=== PATIENT | female | born 1945 | race Caucasian/White ===

== ENCOUNTER 2023-07-06 21:44 | Inpatient (IN) | payer MEDICARE, OTHER, SELFPAY ==
[2023-07-06 18:20] VITALS: BP 96/60; BMI 21.1
--- NOTE | 2023-07-06 18:55 | ED.GENMED ---
History of Present Illness
General
Chief Complaint: Dizziness
Source: family (daughter)
Exam Limitations: dementia
Time Seen by Provider: 07/06/23 18:34
Travel History
Have you had any contact with someone who has COVID-19?: No
Do you have any symptoms of coronavirus? Fever > 100 degrees, chills, cough, shortness of breath, sore throat, loss of taste or smell, muscle aches, or headache?: No
History of Present Illness
History of Present Illness:
This is a 78 year old female that comes in with family with c/o fall. Daughter who is an ER nurse here states that the patient lives with her brother. States that today the pain fell backward and to the left side. States that she c/o dizziness.
Patient was found by son who said that she could take about 4 steps. Daughter states that she could walk about 6 feet and then felt like she was going to pass out. States that she is c/o left groin pain. Denies any fever, chills, chest pain, SOB,
abd pain, nausea, vomiting, diarrhea, headache, dizziness, urinary burning.
Past History
Past History
ED Past Medical History: Asthma, HTN, Hypercholesterolemia and Other (Dementia, UTI, Pelvic fracture from Trauma)
ED Past Surgical History: Cholecystectomy and Orthopedic (Right hip replacement, Bilateral arm pins, Back surgery, )
Social History
Tobacco: Non-smoker
Alcohol: Occasional
Personal:
Living: with family
Review of Systems
Review of Systems
All Other Systems: ROS reviewed and negative except as documented in HPI and ROS
Constitutional: Reports no symptoms; Denies fever or chills
EENT: Reports no symptoms
Respiratory: Reports no symptoms; Denies cough or trouble breathing
Cardiac: Reports no symptoms; Denies chest pain
ABD/GI: Denies abdominal pain, nausea, vomiting or diarrhea
: Reports no symptoms; Denies dysuria, frequency or urgency
Musculoskeletal: Reports no symptoms
Skin: Reports no symptoms
Neurological: Reports dizzy; Denies headache
Psychiatric: Reports no symptoms
Phy Exam
General Physical Exam
General Presentation: no apparent distress
General age: appears stated age
General Skin: warm and dry
General Habitus: elderly
General Mental: usual mental status
General Hydration: appears well hydrated
ENT Exam
ENT Exam: TM's normal, pharynx normal and neck supple
Eye Exam
Eye Exam: EOMI
Cardiovascular Exam
Cardiovascular Exam: regular rate/rhythm, no edema, normal peripheral pulses and other (Murmur)
Pulmonary Exam
Pulmonary Exam: lungs clear, no respiratory distress, no rales, chest non tender, no crackles, no rhonchi, no wheezing and no cough
Gastrointestinal Exam
Gastrointestinal Exam: normal bowel sounds, non tender, soft, no organomegaly, no pulsatile mass and non distended
Musculoskeletal Exam
Musculoskeletal Exam: no edema and other (Left groin pain with flexion of the knee, Legs equal length)
Skin Exam
Skin Exam: normal color, warm/dry, no rash and no petechia
Psychiatric Exam
Psychiatric Exam: normal mood/affect
Course
Orders/Labs/Results
Orders:
Orders
07/06/23 18:19
EKG [Electrocardiogram (*1)] Urgent
Reason for Study: Vertigo / Dizzy
EKG- Treatment ONCE
07/06/23 18:51
Complete Blood Count/With Diff Urgent
Comprehensive Metabolic Panel Urgent
Troponin I Urgent
Urinalysis Reflex To Culture Urgent
Date Specimen was Collected: 07/06/23
Time Specimen was Collected: 18:19
Urine Microscopic Reflex Cult Urgent
07/06/23 18:54
CT Pelvis W/o Iv Contrast Urgent
Comment: History of Pelvic trauma in the past
Reason For Exam: fall, left hip and pelvis pain
Acetaminophen [Tylenol] 1,000 mg PO NOW STA
07/06/23 18:55
0.9% Sodium Chloride 500 ml [Nss] 500 ml IV BOLUS
07/06/23 19:03
CT Head W/o Iv Contrast Urgent
Comment:
Reason For Exam: Fall, Dizziness
Abnormal Lab Results
07/06/23
18:51
WBC 15.4 H 10^3/uL
(4.8-10.8)
RBC 3.85 L 10^6/uL
(4.20-5.40)
Hgb 11.7 L g/dL
(12.0-16.0)
Hct 34.8 L %
(37.0-47.0)
Abs Immat Gran (auto) 0.1 H 10^3/uL
(0-0.05)
Absolute Neuts (auto) 13.9 H 10^3/uL
(1.4-6.5)
Absolute Lymphs (auto) 0.5 L 10^3/uL
(1.2-3.4)
Absolute Monos (auto) 0.9 H 10^3/uL
(0.1-0.6)
Neutrophils % 90.2 H %
(42.2-75.2)
Lymphocytes % 2.9 L %
(20.5-51.1)
Sodium 133 L mmol/L
(135-145)
Chloride 95 L mmol/L
(98-107)
BUN 26 H mg/dl
(7-17)
Glucose 184 H mg/dl
(70-99)
Urine Ketones Trace A
(Negative)
Leukocyte Esterase Rfl Trace A
(Negative)
Urine Bacteria (Reflex) Few A
(Negative)
Urine Glucose 2+ A
(Negative)
07/06/23 18:51
07/06/23 18:51
Leukocytosis, H/H slightly low. Sodium slightly low. Dehydration. Glucose nonfasting. Urine negative for infection. Troponin <0.012
Vital Signs
Initial and Last Documented VS:
Initial Vital Signs
Temp Pulse Resp BP Pulse Ox
99.2 F 81 16 96/60 98
07/06/23 18:20 07/06/23 18:20 07/06/23 18:20 07/06/23 18:20 07/06/23 18:20
Last Documented Vital Signs
Temp Pulse Resp BP Pulse Ox
99.2 F 78 16 130/61 96
07/06/23 18:20 07/06/23 20:15 07/06/23 20:15 07/06/23 19:00 07/06/23 20:10
MDM/Problems Addressed
Differential Diagnosis Includes:
Pelvic fracture, UTI
MDM/Problems Addressed:
This is a 78 year old female that comes in with c/o fall. Daughter states that she fell today and went backward and to the left. States that she was able to walk about 6 fee and then c/o feeling like she was going to pass out. States that she hasn't
been eating well and c/o left groin pain.
Will get labs, Urine, CT head and pelvis. Medicate for pain.
Back into see patient and daughter. Explained that there is left sided superior and Inferior pelvic fracture. Will admit patient. Hospitalist notified.
Chronic conditions affecting care: Other (Dementia)
Acute Exacerbation and/or Progression of Chronic Illness:
NA
*Radiology
Radiology exam reviewed: radiology read reviewed (CT head-No CT evidence for acute intracranial hemorrhage or transcortical infarct. Severe white matter leukoaraiosis in both cerebral hemispheres. Small chronic lacunar infarcts in the right basal
ganglia and right thalamus. Moderate bilateral frontal and temporal lobe Volume loss. CT pelvis- Acute), all reviewed NAD by ED Provider (CT pelvis Cont- Mildly displaced fractures of the left superior and inferior pubic rami with adjacent
intramuscular hemorrhage in the left obturator internus and extremus muscles and in the left extraperitoneal space adjacent to the urinary bladder. Chronc healed right pubic rami fractures. Chronic ) and other (CT cont- Chronic healed Right proximal
femoral intertrochangeric fracture with a gamma nail in place. Severe discogenic degenerative disease and facet joint arthrosis in the lower lumbar spine. Mild bilateral osteroarthritis of the hips. Ostteoporosis. )
*Pulse Oximetry
Patient hypoxic: no
*Photographic Lithographer Interpretation
Rate: normal
Heart Rate: 78
Rhythm: sinus
*Critical Care Note
Total Time (30-74mins, 75-104mins- exclusive of procedures): Not Applicable
ED Attending Note
-
Portions of this chart may have been created with voice recognition software.� Occasional wrong word or��sound alike� substitutions may have occurred due to the inherent limitations of voice recognition software.
Discharge Plan
Departure
Patient Disposition: Admit
Date of Disposition: 07/06/23
Time of Disposition: 20:46
Admit to: Med/Surg
Presentation/result/management discussed w/ accepting MD/DO: Hospitalist
Patient with high blood pressure during this ER visit?: Yes
Condition: Good
Covid-19: Not Applicable
Discharge Problem:
Closed fracture of left pelvis
Prescriptions:
No Action
atorvastatin 20 mg tablet
20 mg PO DAILY
amlodipine 5 mg tablet
5 mg PO DAILY
montelukast 10 mg tablet
10 mg PO HS
albuterol sulfate 90 mcg/actuation HFA aerosol inhaler
2 puff INHALATION R Q4HPRN PRN (Reason: sob/wheezing)
escitalopram oxalate 10 mg tablet
10 mg PO HS
Patient Comments:
07/06/2023: Supposed to take at HS, but per family they think pt is taking in the am per pill boxes
cholecalciferol (vitamin D3) 50 mcg (2,000 unit) capsule
50 mcg PO DAILY
Referrals:
Briana Raymundo CRNP [Family Provider] -
Interventions
Interventions:
*Risk Screen - Suicide Last Done: 07/06/23 18:20
*General Assessment Last Done: 07/06/23 18:46
*Neglect/Abuse Screening Last Done: 07/06/23 18:20
*ED COVID-19 Vaccine History Last Done: 07/06/23 18:20
ED- Neurological Assessment Last Done: 07/06/23 18:55
ED Swallowing Screen Last Done: 07/06/23 18:55
Discharge Date and Time
Print Language: OMANI
[2023-07-06 19:00] VITALS: BP 130/61
[2023-07-06] MEDS: TYLENOL 1000 MG PO (19:06)
[2023-07-06] MEDS: NSS 500 IV (19:07)
[2023-07-06 19:10] LABS: % Basophils 0.3 % (0-2); % Eosinophils 0.3 % (0-6); % Immature Granulocytes 0.5 % (0-0.5); % Lymphocytes 2.9 % (20.5-51.1); % Monocytes 5.8 % (1.7-9.3); % Neutrophils 90.2 % (42.2-75.2); Absolute Basophils 0.1 10^3/uL (0-0.2); Absolute Immature Granulocytes 0.1 10^3/uL (0-0.05); Absolute Lymphocytes 0.5 10^3/uL (1.2-3.4); Absolute Monocytes 0.9 10^3/uL (0.1-0.6); Absolute Neutrophils 13.9 10^3/uL (1.4-6.5); Hematocrit 34.8 % (37.0-47.0); Hemoglobin 11.7 g/dL (12.0-16.0); Mean Corp Hgb Conc. 33.6 g/dL (33.0-37.0); Mean Corpuscular Hgb 30.4 pg (27.0-31.0); Mean Corpuscular Volume 90.4 fL (81.0-99.0); Mean Platelet Volume 9.7 fL (7.4-10.4); Nucleated Red Blood Cells % 0 %; Platelet Count 262 10^3/uL (130-400); Red Blood Cell Count 3.85 10^6/uL (4.20-5.40); Red Cell Dist. Width 12.6 % (11.5-14.5); White Blood Cell Count 15.4 10^3/uL (4.8-10.8)
[2023-07-06 19:22] LABS: Chloride 95 mmol/L (98-107); Potassium 3.9 mmol/L (3.5-5.1); Sodium 133 mmol/L (135-145)
[2023-07-06 19:30] LABS: ALT (SGPT) 17 U/L (0-35); AST (SGOT) 23 U/L (14-36); Alkaline Phosphatase 79 U/L (38-126); Blood Urea Nitrogen 26 mg/dl (7-17); Carbon Dioxide 30 mmol/L (22-30); Estimated Creatinine Clearance 50 ml/min; Glucose 184 mg/dl (70-99); Total Bilirubin 0.5 mg/dl (0.2-1.3); Total Protein 6.3 g/dl (6.3-8.2); eGFR > 60.00
[2023-07-06 19:34] LABS: Troponin I < 0.012 ng/ml
[2023-07-06 19:48] LABS: Urine Albumin Trace (Neg - Trace); Urine Bilirubin Negative (Negative); Urine Character Clear (Clear); Urine Color Yellow; Urine Glucose 2+ (Negative); Urine Ketone Trace (Negative); Urine Leukocyte Trace (Negative); Urine Nitrite Negative (Negative); Urine Occult Blood Negative (Negative); Urine Urobilinogen Negative (Neg - 1+)
[2023-07-06 20:04] LABS: Urine Bacteria Few (Negative); Urine Red Blood Cell 0-2 /HPF (0-2)
[2023-07-06 21:00] VITALS: BP 148/65
--- NOTE | 2023-07-06 21:26 | HPS.HSE ---
Addendum entered and electronically signed by Abigail Barrett MD 07/06/23 21:45:
Code status CPR only.
Original Note:
Family Physician
-
Family Physician: ZACKARY Lozoya
Chief Complaint
-
fall
History of Present Illness
78-year-old female past medical history of asthma, hypertension, hypercholesteremia, dementia, presenting with fall. Daughter is a ER nurse here and states that patient lives with her brother. Today patient fell backward onto her left side due to
tripping which was not observed but brother immediately came down and found patient awake. She may have passed out briefly. Patient has chronic dizziness with ambulation. In April her amlodipine was decreased from 10 mg to 5 mg. She has not
been eating or drinking well recently.
She has had other tripping falls before.
No chest pain or shortness of breath or abdominal pain or nausea or vomiting or diarrhea.
Patient drinks alcohol occasionally. No smoking.
Medical History
Past Medical History
Past Medical History: Reports Other (asthma, hypertension, hypercholesteremia, dementia)
Past Surgical History: Reports Other (Cholecystectomy and Orthopedic (Right hip replacement, Bilateral arm pins, Back surgery, ))
Social History
Tobacco: Non-smoker
Alcohol: Occasional
Drug: None
Family History
Family History: Not pertinent
Allergies / Home Medications
Allergies reflects when Allergies were last updated in [employer].
Home Medications with original date entered in [employer]
Allergy/Medication List:
Allergies
Allergy/AdvReac Type Severity Reaction Status Date / Time
Iodinated Contrast Media Allergy Mild Unknown Verified 07/06/23 18:26
Home Medications
albuterol sulfate 90 mcg/actuation aerosol inhaler 2 puff inhalation R Q4HPRN PRN sob/wheezing 07/06/23
amlodipine 5 mg tablet 5 mg PO DAILY 07/06/23
atorvastatin 20 mg tablet 20 mg PO DAILY 07/06/23
cholecalciferol (vitamin D3) 50 mcg (2,000 unit) capsule 50 mcg PO DAILY 07/06/23
escitalopram oxalate 10 mg tablet 10 mg PO HS 07/06/23
montelukast 10 mg tablet 10 mg PO HS 07/06/23
Review of Systems
-
History Source: Patient
A 12 point ROS was completed and negative except as noted: Yes
Constitutional: Reports No Symptoms
EENT: Reports No Symptoms
Respiratory: Reports No Symptoms
Cardiac: Reports No Symptoms
Abdomen/GI: Reports No Symptoms
: Reports No Symptoms
Musculoskeletal: Reports No Symptoms
Skin: Reports No Symptoms
Neurological: Reports No Symptoms
Endocrine: Reports No Symptoms
Hematologic/Lymphatic: Reports No Symptoms
Psych: Reports No Symptoms
Physical Exam
Vital Signs
Vital Signs
Temp Pulse Resp BP Pulse Ox
99.2 F 83 13 148/65 96
07/06/23 18:20 07/06/23 21:00 07/06/23 21:00 07/06/23 21:00 07/06/23 20:10
Physical Exam
General: Well Developed, Well Nourished and No Apparent Distress
HEENT: NormoCephalic, Moist mucous membranes and Atraumatic
Respiratory: Clear
Cardiac: S1/S2 and Regular Rhythm; No Murmur or Rub
GI: Soft, Non Tender, Non Distended and Normal Bowel Sounds; No Organomegaly
Rectal: Deferred by Provider
Musculoskeletal: No Clubbing, No Cyanosis and No Edema
Skin: No Rash
Neuro: Nonfocal/grossly intact
Laboratory Results
-
07/06/23 18:51
07/06/23 18:51
Laboratory Results
Total Bilirubin 0.5 mg/dl (0.2-1.3) 07/06/23 18:51
AST 23 U/L (14-36) 07/06/23 18:51
ALT 17 U/L (0-35) 07/06/23 18:51
Alkaline Phosphatase 79 U/L (38-126) 07/06/23 18:51
Troponin I < 0.012 ng/ml 07/06/23 18:51
Data Reviewed
-
Lab Data: Labs Reviewed by me
Old Records: Reviewed
Impression/Plan
-
IMPRESSION:
PLAN:
# Dizziness/possible syncope likely due to orthostatic hypotension
-Initial blood pressure 96/60
-Check orthostatic vital signs
-IV fluids given
# Acute fractures of left superior/inferior pubic rami with adjacent intramuscular hemorrhage
-Pelvic CT shows acute mildly displaced fracture of the left superior and inferior. Currently with adjacent intramuscular hemorrhage in the left obturator internus and externus muscles and in the left extraperitoneal space adjacent to the urinary
bladder
-CT head shows no acute abnormality, small chronic lacunar infarct in the right basal ganglia, right thalamus
-Tylenol for pain
-PT/OT
# Leukocytosis
-Likely reactive
-UA negative
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
-Start aspirin after resolution of intramuscular hemorrhage
-Continue statin
Essential hypertension
-Continue amlodipine
Asthma
-Continue montelukast, albuterol
Hypercholesterolemia
Dementia
Anxiety/depression
-Continue Lexapro
Full code
DVT prophylaxis�heparin
Regular diet
[2023-07-06 22:00] VITALS: BP 121/59
[2023-07-06 23:27] VITALS: BP 154/82; BMI 22.3
[2023-07-07] VITALS (8 sets, daily range): BP systolic 95–152; BP diastolic 57–78; PULSE 89; O2SAT 96
[2023-07-07] MEDS: LEXAPRO 10 MG PO ×2 (00:10→21:29)
[2023-07-07] MEDS: SINGULAIR 10 MG PO ×2 (00:10→21:29)
[2023-07-07 06:02] LABS: % Basophils 0.4 % (0-2); % Immature Granulocytes 0.4 % (0-0.5); % Lymphocytes 20.3 % (20.5-51.1); % Monocytes 8.5 % (1.7-9.3); % Neutrophils 69.4 % (42.2-75.2); Absolute Eosinophils 0.1 10^3/uL (0-0.7); Absolute Lymphocytes 1.4 10^3/uL (1.2-3.4); Absolute Monocytes 0.6 10^3/uL (0.1-0.6); Absolute Neutrophils 4.8 10^3/uL (1.4-6.5); Hematocrit 30.7 % (37.0-47.0); Mean Corp Hgb Conc. 32.6 g/dL (33.0-37.0); Mean Corpuscular Hgb 29.9 pg (27.0-31.0); Mean Corpuscular Volume 91.6 fL (81.0-99.0); Mean Platelet Volume 9.9 fL (7.4-10.4); Nucleated Red Blood Cells % 0 %; Platelet Count 189 10^3/uL (130-400); Red Blood Cell Count 3.35 10^6/uL (4.20-5.40); Red Cell Dist. Width 12.5 % (11.5-14.5); White Blood Cell Count 6.9 10^3/uL (4.8-10.8)
[2023-07-07 07:01] LABS: ALT (SGPT) 14 U/L (0-35); AST (SGOT) 23 U/L (14-36); Albumin 3.5 g/dl (3.5-5.0); Alkaline Phosphatase 70 U/L (38-126); Blood Urea Nitrogen 22 mg/dl (7-17); Calcium 8.9 mg/dl (8.4-10.2); Carbon Dioxide 28 mmol/L (22-30); Chloride 100 mmol/L (98-107); Estimated Creatinine Clearance 67 ml/min; Glucose 85 mg/dl (70-99); Potassium 3.8 mmol/L (3.5-5.1); Sodium 136 mmol/L (135-145); Total Bilirubin 0.8 mg/dl (0.2-1.3); Total Protein 5.7 g/dl (6.3-8.2); eGFR > 60.00
[2023-07-07] MEDS: NORVASC 5 MG PO (08:40)
[2023-07-07] MEDS: LIPITOR 20 MG PO (08:40)
[2023-07-07] MEDS: VITAMIN D3 (cholecalciferol) 50 MCG PO (08:40)
--- NOTE | 2023-07-07 09:36 | W.PN.HOSP.TC ---
Today's Communication/Plan
-
PT/OT
pain control
monitor orthostatic vitals, H&H
fall precautions
ASA 81 mg daily
Assessment / Plan
Assessment / Plan
Physical Exam
General: No acute distress appears comfortable at this time
HEENT: NormoCephalic, Moist mucous membranes and Atraumatic
Respiratory: Clear
Cardiac: S1/S2 and Regular Rhythm; No Murmur or Rub
GI: Soft, Non Tender, Non Distended and Normal Bowel Sounds; No Organomegaly
Musculoskeletal: No Clubbing, No Cyanosis and No Edema. Able to lift legs up from bed
Skin: No Rash
Neuro: AOx2 disoriented to time
78F asthma HTN HLD Dementia Rt hip replacement b/l arm pins here for fall resulting in pelvic fracture.
# Dizziness/possible syncope due to orthostatic hypotension
-IV fluids given
-monitor orthostatic vitals
# Acute fractures of left superior/inferior pubic rami with adjacent intramuscular hemorrhage
-Pelvic CT shows acute mildly displaced fracture of the left superior and inferior. Currently with adjacent intramuscular hemorrhage in the left obturator internus and externus muscles and in the left extraperitoneal space adjacent to the urinary
bladder
-CT head shows no acute abnormality, small chronic lacunar infarct in the right basal ganglia, right thalamus
-Tylenol 1000 mg TID for pain
-PT/OT appreciated SNF rehab
# Leukocytosis
-Likely stress reactive
-UA negative
-resolved w/o need for abx
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
-ASA 81 mg daily started, cont
-Continue statin
Essential hypertension
-Continue amlodipine
Asthma
-Continue montelukast, albuterol
Hypercholesterolemia
cont statin
Dementia
Anxiety/depression
-Continue Lexapro
Full code
DVT prophylaxis� SCDs
Regular diet
discussed with patient at bedside and patient's daughter Cyndi shift nurse manager nurse over phone
I spent a total of 55 minutes with the patient or on the floor. More than 50% of this time involved counseling and coordination of care.
Anticipated Discharge: 24 - 48 hours
Subjective/Interval History
-
Date of Service: July 07, 2023
Seen and examined at bedside in no acute distress resting comfortably in bed. Reports 'soreness.' Denies significant pain at this time. AOx2, disoriented to time
Objective Data
-
Labs:
Laboratory Results
07/07/23
04:56
WBC 6.9
Hgb 10.0 L
Hct 30.7 L
Plt Count 189 D
Sodium 136
Potassium 3.8
Chloride 100
Carbon Dioxide 28
BUN 22 H
Creatinine 0.5 L
Glucose 85
Calcium 8.9
Total Bilirubin 0.8
AST 23
ALT 14
Alkaline Phosphatase 70
Vital Signs:
Vital Signs
Temp Pulse Resp BP Pulse Ox
97.9 F 80 18 152/78 97
07/07/23 07:00 07/07/23 07:00 07/07/23 07:00 07/07/23 07:00 07/07/23 07:00
I&O
07/06/23 07/07/23 07/08/23
06:59 06:59 06:59
Intake Total 200 / 200
Output Total 250 / 250
Balance -50 / -50
--- NOTE | 2023-07-07 11:47 | CM ---
Medical records reviewed. Initial assessment completed with patient who reports she lives with her son in a 2 story home plus basement, 1/2 bath on 1st, 3 + 1 step to enter. She has a SPC and RW, no in-home services. She states she was independent
in care ACCOUNT COORDINATOR, no longer drives. No psychiatric history. Daughter is FAMILY SUPPORT WORKER at . Pharmacy is [facility] in [place] and DIRECTOR EQUIPMENT is Briana Raymundo. Anticipate SNF. Will await PT evaluation and recommendations.
[2023-07-07] MEDS: LOW STRENGTH ASPIRIN 81 MG PO (12:15)
[2023-07-07] MEDS: TYLENOL 1000 MG PO ×2 (15:37→21:29)
[2023-07-08 03:18] VITALS: BP 139/74
--- NOTE | 2023-07-08 07:02 | W.PN.HOSP.TC ---
Today's Communication/Plan
-
monitor H&H
PT/OT
pain control
bowel regimen
discharge planning SNF rehab
Assessment / Plan
Assessment / Plan
Physical Exam
General: No acute distress appears comfortable at this time
HEENT: NormoCephalic, Moist mucous membranes and Atraumatic
Respiratory: Clear
Cardiac: S1/S2 and Regular Rhythm; No Murmur or Rub
GI: Soft, Non Tender, Non Distended and Normal Bowel Sounds; No Organomegaly
Musculoskeletal: No Clubbing, No Cyanosis and No Edema. Able to lift legs up from bed
Skin: No Rash
Neuro: AOx2 disoriented to time
78F asthma HTN HLD Dementia Rt hip replacement b/l arm pins here for fall resulting in pelvic fracture.
# Dizziness/possible syncope due to orthostatic hypotension
-IV fluids given
-No orthostatic hypotension during hospital stay
# Acute fractures of left superior/inferior pubic rami with adjacent intramuscular hemorrhage
-Pelvic CT shows acute mildly displaced fracture of the left superior and inferior. Currently with adjacent intramuscular hemorrhage in the left obturator internus and externus muscles and in the left extraperitoneal space adjacent to the urinary
bladder
-CT head shows no acute abnormality, small chronic lacunar infarct in the right basal ganglia, right thalamus
-Tylenol 1000 mg TID for pain
-PT/OT appreciated SNF rehab
#Anemia
slow downtrend
cont monitoring H&H
#constipation
senna/docusate
# Leukocytosis
-Likely stress reactive
-UA negative
-resolved w/o need for abx
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
-ASA 81 mg daily started, cont
-Continue statin
Essential hypertension
-Continue amlodipine
Asthma
-Continue montelukast, albuterol
Hypercholesterolemia
cont statin
Dementia
Anxiety/depression
-Continue Lexapro
Full code
DVT prophylaxis� SCDs
Regular diet
discussed with patient at bedside and patient's daughter Cyndi shift superintendent caustic cresylate nurse over phone
I spent a total of 55 minutes with the patient or on the floor. More than 50% of this time involved counseling and coordination of care.
Anticipated Discharge: 24 - 48 hours
Subjective/Interval History
-
Date of Service: July 08, 2023
No acute distress. Appears well. Denies significant pain. No bowel movement since hospitalization
Objective Data
-
Labs:
Laboratory Results
07/08/23
06:13
WBC Pending
Hgb Pending
Hct Pending
Plt Count Pending
Sodium Pending
Potassium Pending
Chloride Pending
Carbon Dioxide Pending
BUN Pending
Creatinine Pending
Glucose Pending
Calcium Pending
Vital Signs:
Vital Signs
Temp Pulse Resp BP Pulse Ox
98.0 F 76 16 139/74 97
07/08/23 03:18 07/08/23 03:18 07/08/23 03:18 07/08/23 03:18 07/08/23 03:18
I&O
07/07/23 07/08/23 07/09/23
06:59 06:59 06:59
Intake Total 200 / 200 240 / 240
Output Total 250 / 250 800 / 800
Balance -50 / -50 -560 / -560
[2023-07-08 07:03] LABS: Hemoglobin 9.4 g/dL (12.0-16.0); Mean Corp Hgb Conc. 33.6 g/dL (33.0-37.0); Mean Corpuscular Volume 89.5 fL (81.0-99.0); Mean Platelet Volume 9.9 fL (7.4-10.4); Platelet Count 187 10^3/uL (130-400); Red Blood Cell Count 3.13 10^6/uL (4.20-5.40); Red Cell Dist. Width 12.8 % (11.5-14.5); White Blood Cell Count 6.7 10^3/uL (4.8-10.8)
[2023-07-08 07:32] LABS: Blood Urea Nitrogen 21 mg/dl (7-17); Calcium 8.4 mg/dl (8.4-10.2); Carbon Dioxide 28 mmol/L (22-30); Chloride 102 mmol/L (98-107); Estimated Creatinine Clearance 67 ml/min; Glucose 96 mg/dl (70-99); Phosphorus 3.4 mg/dl (2.5-4.5); Potassium 3.8 mmol/L (3.5-5.1); Sodium 134 mmol/L (135-145); eGFR > 60.00
[2023-07-08 08:00] VITALS: BP 137/79
[2023-07-08] MEDS: LOW STRENGTH ASPIRIN 81 MG PO (08:51)
[2023-07-08] MEDS: NORVASC 5 MG PO (08:51)
[2023-07-08] MEDS: VITAMIN D3 (cholecalciferol) 50 MCG PO (08:51)
[2023-07-08] MEDS: LIPITOR 20 MG PO (08:51)
[2023-07-08] MEDS: TYLENOL 1000 MG PO ×3 (08:51→21:19)
[2023-07-08 11:08] LABS: Hematocrit 27.9 % (37.0-47.0); Hemoglobin 9.3 g/dL (12.0-16.0)
--- NOTE | 2023-07-08 12:14 | CM ---
CM following re: d/c planning.
Per therapy, recs for SNF placement following hospitalization.
CM discussed with daughter Cyndi, she is amenable to d/c plan.
Pt has previously been to [facility] and seemed to like the facility.
[facility] is another choice too.
CM sent refs to [facility] and [facility].
Goal: SNF placement, pending bed availability and medical clearance.
[2023-07-08 12:36] VITALS: BP 144/70; BP 150/68; BP 159/83; BP 160/76; PULSE 71; PULSE 78; PULSE 88; O2SAT 95
[2023-07-08 15:44] VITALS: BP 135/60
[2023-07-08 19:20] VITALS: BP 136/59
[2023-07-08] MEDS: SENOKOT-S 1 TABLET PO (19:40)
[2023-07-08] MEDS: SINGULAIR 10 MG PO (21:19)
[2023-07-08] MEDS: LEXAPRO 10 MG PO (21:19)
[2023-07-08 23:40] VITALS: BP 139/70
[2023-07-09] VITALS (7 sets, daily range): BP systolic 103–176; BP diastolic 48–80; PULSE 80; O2SAT 97
[2023-07-09 05:56] LABS: Hematocrit 28.2 % (37.0-47.0); Hemoglobin 9.5 g/dL (12.0-16.0); Mean Corp Hgb Conc. 33.7 g/dL (33.0-37.0); Mean Corpuscular Hgb 30.7 pg (27.0-31.0); Mean Corpuscular Volume 91.3 fL (81.0-99.0); Mean Platelet Volume 9.8 fL (7.4-10.4); Platelet Count 171 10^3/uL (130-400); Red Blood Cell Count 3.09 10^6/uL (4.20-5.40); Red Cell Dist. Width 12.7 % (11.5-14.5); White Blood Cell Count 7.6 10^3/uL (4.8-10.8)
[2023-07-09 06:30] LABS: Blood Urea Nitrogen 21 mg/dl (7-17); Calcium 8.5 mg/dl (8.4-10.2); Carbon Dioxide 30 mmol/L (22-30); Chloride 103 mmol/L (98-107); Estimated Creatinine Clearance 67 ml/min; Glucose 97 mg/dl (70-99); Iron 37 ug/dl (37-170); Phosphorus 3.7 mg/dl (2.5-4.5); Potassium 4.2 mmol/L (3.5-5.1); Sodium 133 mmol/L (135-145); eGFR > 60.00
--- NOTE | 2023-07-09 06:34 | W.PN.HOSP.TC ---
Today's Communication/Plan
-
Monitor H&H
Iron B12 supplementation
PT/OT
discharge planning SNF rehab
Assessment / Plan
Assessment / Plan
Physical Exam
General: No acute distress appears comfortable at this time
HEENT: NormoCephalic, Moist mucous membranes and Atraumatic
Respiratory: Clear
Cardiac: S1/S2 and Regular Rhythm; No Murmur or Rub
GI: Soft, Non Tender, Non Distended and Normal Bowel Sounds; No Organomegaly
Musculoskeletal: No Clubbing, No Cyanosis and No Edema.
Skin: No Rash
Neuro: AOx2 disoriented to time
78F asthma HTN HLD Dementia Rt hip replacement b/l arm pins here for fall resulting in pelvic fracture.
# Dizziness/possible syncope due to orthostatic hypotension
-IV fluids given
-No orthostatic hypotension during hospital stay
# Acute fractures of left superior/inferior pubic rami with adjacent intramuscular hemorrhage
-Pelvic CT shows acute mildly displaced fracture of the left superior and inferior. Currently with adjacent intramuscular hemorrhage in the left obturator internus and externus muscles and in the left extraperitoneal space adjacent to the urinary
bladder
-CT head shows no acute abnormality, small chronic lacunar infarct in the right basal ganglia, right thalamus
-Tylenol 1000 mg TID for pain
-PT/OT appreciated SNF rehab
#Left Shoulder Pain
Shoulder XR notes severe degenerative osteoarthritis possible rotator cuff pathology
#Anemia
#Anemia of Chronic Disease
#B12 deficiency
H&H stable
B12 supplementation
IV iron supplementation while inpt, switch to oral on discharge
#constipation
senna/docusate
# Leukocytosis
-Likely stress reactive
-UA negative
-resolved w/o need for abx
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
-ASA 81 mg daily started, cont
-Continue statin
Essential hypertension
-Continue amlodipine
Asthma
-Continue montelukast, albuterol
Hypercholesterolemia
cont statin
Dementia
Anxiety/depression
-Continue Lexapro
Full code
DVT prophylaxis� SCDs
Regular diet
discussed with patient at bedside and patient's daughter Cyndi hourly shift nurse over phone
I spent a total of 55 minutes with the patient or on the floor. More than 50% of this time involved counseling and coordination of care.
Anticipated Discharge: 24 - 48 hours
Subjective/Interval History
-
Date of Service: July 09, 2023
No acute distress. Reports Left shoulder pain. Constipation resolved.
Objective Data
-
Labs:
Laboratory Results
07/09/23
05:38
WBC 7.6
Hgb 9.5 L
Hct 28.2 L
Plt Count 171
Sodium 133 L
Potassium 4.2
Chloride 103
Carbon Dioxide 30
BUN 21 H
Creatinine 0.5 L
Glucose 97
Calcium 8.5
Vital Signs:
Vital Signs
Temp Pulse Resp BP Pulse Ox
98.1 F 72 17 128/80 98
07/09/23 03:15 07/09/23 03:15 07/09/23 03:15 07/09/23 03:15 07/09/23 03:15
I&O
07/07/23 07/08/23 07/09/23
06:59 06:59 06:59
Intake Total 200 / 200 240 / 240 980 / 980
Output Total 250 / 250 800 / 800
Balance -50 / -50 -560 / -560 980 / 980
[2023-07-09 06:39] LABS: Percent Saturation 15 % (20-50); Total Iron Binding Capacity 234 ug/dl (265-497)
[2023-07-09 07:17] LABS: Vitamin B12 160 pg/ml (239-931)
[2023-07-09] MEDS: SENOKOT-S 1 TABLET PO (08:22)
[2023-07-09] MEDS: TYLENOL 1000 MG PO ×3 (08:22→21:45)
[2023-07-09] MEDS: LIPITOR 20 MG PO (08:22)
[2023-07-09] MEDS: LOW STRENGTH ASPIRIN 81 MG PO (08:22)
[2023-07-09] MEDS: VITAMIN D3 (cholecalciferol) 50 MCG PO (08:23)
[2023-07-09] MEDS: NORVASC 5 MG PO (08:23)
[2023-07-09] MEDS: ULTRAM 25 MG PO ×2 (14:20→22:00)
[2023-07-09] MEDS: FERRLECIT 110 MG IV (14:21)
[2023-07-09] MEDS: VITAMIN B-12 1000 MCG PO (14:21)
--- NOTE | 2023-07-09 15:44 | CM ---
IMM signed and placed on the chart.
[2023-07-09] MEDS: SINGULAIR 10 MG PO (21:45)
[2023-07-09] MEDS: LEXAPRO 10 MG PO (21:45)
[2023-07-10] VITALS (7 sets, daily range): BP systolic 119–144; BP diastolic 57–71; PULSE 78; O2SAT 94
[2023-07-10 08:17] LABS: Hemoglobin 8.6 g/dL (12.0-16.0); Mean Corp Hgb Conc. 31.9 g/dL (33.0-37.0); Mean Corpuscular Hgb 29.4 pg (27.0-31.0); Mean Corpuscular Volume 92.2 fL (81.0-99.0); Mean Platelet Volume 10.1 fL (7.4-10.4); Platelet Count 214 10^3/uL (130-400); Red Blood Cell Count 2.93 10^6/uL (4.20-5.40); White Blood Cell Count 5.9 10^3/uL (4.8-10.8)
[2023-07-10] MEDS: LOW STRENGTH ASPIRIN 81 MG PO (09:02)
[2023-07-10] MEDS: NORVASC 5 MG PO (09:02)
[2023-07-10] MEDS: VITAMIN B-12 1000 MCG PO (09:02)
[2023-07-10] MEDS: TYLENOL 1000 MG PO ×2 (09:02→16:06)
[2023-07-10] MEDS: VITAMIN D3 (cholecalciferol) 50 MCG PO (09:02)
[2023-07-10] MEDS: LIPITOR 20 MG PO (09:05)
[2023-07-10 09:11] LABS: Blood Urea Nitrogen 24 mg/dl (7-17); Calcium 8.4 mg/dl (8.4-10.2); Carbon Dioxide 29 mmol/L (22-30); Chloride 102 mmol/L (98-107); Estimated Creatinine Clearance 67 ml/min; Glucose 83 mg/dl (70-99); Phosphorus 4.2 mg/dl (2.5-4.5); Potassium 4.2 mmol/L (3.5-5.1); Sodium 132 mmol/L (135-145); eGFR > 60.00
--- NOTE | 2023-07-10 10:37 | PTCARENOTE ---
pt oriented to self. states no pain while laying left leg and shoulder pain when moving. pain med offered. breath sounds clear. room air. pulses present.
--- NOTE | 2023-07-10 11:31 | W.PN.HOSP.TC ---
Addendum entered and electronically signed by Raz Bartholomew MD 07/10/23 12:24:
Suspect fracture is likely combination of trauma and a pathological process of osteoporosis
Addendum entered and electronically signed by Raz Bartholomew MD 07/10/23 11:46:
Daughter updated over the phone
Time of discharge 38 minutes
Original Note:
Today's Communication/Plan
-
Monitor vital signs see plan
Discharge pending placement
Pain control
Called daughter, left voicemail
Assessment / Plan
Assessment / Plan
Physical Exam
General: No acute distress appears comfortable at this time
HEENT: NormoCephalic, Moist mucous membranes and Atraumatic
Respiratory: Clear
Cardiac: S1/S2 and Regular Rhythm; No Murmur or Rub
GI: Soft, Non Tender, Non Distended and Normal Bowel Sounds; No Organomegaly
Musculoskeletal: No Clubbing, No Cyanosis and No Edema.
Skin: No Rash
Neuro: AOx2 disoriented to time
78F asthma HTN HLD Dementia Rt hip replacement b/l arm pins here for fall resulting in pelvic fracture.
# Dizziness/possible syncope due to orthostatic hypotension
-IV fluids given
-No orthostatic hypotension during hospital stay
# Acute fractures of left superior/inferior pubic rami with adjacent intramuscular hemorrhage
-Pelvic CT shows acute mildly displaced fracture of the left superior and inferior. Currently with adjacent intramuscular hemorrhage in the left obturator internus and externus muscles and in the left extraperitoneal space adjacent to the urinary
bladder
-CT head shows no acute abnormality, small chronic lacunar infarct in the right basal ganglia, right thalamus
-Tylenol 1000 mg TID for pain
-PT/OT appreciated SNF rehab
#Left Shoulder Pain
Shoulder XR notes severe degenerative osteoarthritis possible rotator cuff pathology
Mild hyponatremia
Monitor
#Anemia
#Anemia of Chronic Disease
Also component of acute blood loss anemia from intramuscular hemorrhage
#B12 deficiency
H&H stable
B12 supplementation
IV iron supplementation while inpt, switch to oral on discharge
#constipation
senna/docusate
# Leukocytosis
-Likely stress reactive
-UA negative
-resolved w/o need for abx
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
-ASA 81 mg daily started, cont
-Continue statin
Essential hypertension
-Continue amlodipine
Asthma
-Continue montelukast, albuterol
Hypercholesterolemia
cont statin
Dementia
Anxiety/depression
-Continue Lexapro
Full code
DVT prophylaxis� SCDs
Regular diet
discussed with patient at bedside
Anticipated Discharge: Today
Subjective/Interval History
-
Date of Service: July 10, 2023
Denies nausea
Objective Data
-
Labs:
Laboratory Results
07/10/23
06:51
WBC 5.9
Hgb 8.6 L
Hct 27.0 L
Plt Count 214 D
Sodium 132 L
Potassium 4.2
Chloride 102
Carbon Dioxide 29
BUN 24 H
Creatinine 0.5 L
Glucose 83
Calcium 8.4
Vital Signs:
Vital Signs
Temp Pulse Resp BP Pulse Ox
97.9 F 71 17 135/58 94
07/10/23 07:10 07/10/23 09:02 07/10/23 07:10 07/10/23 09:02 07/10/23 07:10
I&O
07/09/23 07/10/23 07/11/23
06:59 06:59 06:59
Intake Total 980 / 980 760 / 760
Balance 980 / 980 760 / 760
--- NOTE | 2023-07-10 11:51 | W.DCSUMMARY ---
Discharge Summary
Discharge Data
Date of Admission: 07/06/23
Date of Discharge: 07/10/23
-
Pending Results: No
Hospital Course
78-year-old female with past medical history of asthma, hypertension, hyperlipidemia, dementia, anxiety, depression came to the hospital after a fall with acute fracture of left superior/inferior pubic rami with adjacent intramuscular hemorrhage.
Patient was seen by physical therapy recommended SNF. CT scan on admission was consistent with fracture. CT of the head did not show any new abnormality however did show chronic infarct. Patient was then started on baby aspirin. Patient also had
left shoulder pain for which x-ray was done which showed severe degenerative osteoarthritis. Patient initially had some dizziness which over time improved with fluids. Patient was seen by physical therapy who recommended SNF on discharge. Once
patient symptoms were improving, she was then discharged to SNF with instructions to follow-up with all her physicians outpatient.
Discharge Plan
-
Patient Disposition: Fdc/SNF
Discharge Diagnosis/Procedures: Dizziness
Acute fractures of left superior/inferior pubic rami with adjacent intramuscular hemorrhage
Anemia
Left shoulder pain
Constipation
Old Stroke
Diet: As tolerated
Activity: As tolerated
Driving Restrictions: Not until seen by your Dr
Bathing Restrictions: None
Referrals:
Briana Raymundo CRNP [Family Provider] - in less than 1 week
Kevin Chin MD [Active] - in one to two weeks
Prescriptions:
New
aspirin [Children's Aspirin] 81 mg Tablet,Chewable
81 mg PO DAILY Qty: 0 0RF
sennosides-docusate sodium [Stool Softener-Stimulant Laxat] 8.6-50 mg Tablet
1 tab PO BIDPRN PRN (Reason: constipation) Qty: 0 0RF
acetaminophen [Tylenol Extra Strength] 500 mg Tablet
1,000 mg PO TID Qty: 0 0RF
cyanocobalamin (vitamin B-12) 1,000 mcg Tablet
1,000 mcg PO DAILY Qty: 0 0RF
tramadol 50 mg Tablet
25 mg PO Q6HPRN PRN (Reason: moderate severe pain) Qty: 12 0RF
ferrous gluconate 324 mg (37.5 mg iron) tablet
324 mg PO DAILY Qty: 1 0RF
Continued
atorvastatin 20 mg tablet
20 mg PO DAILY
amlodipine 5 mg tablet
5 mg PO DAILY
montelukast 10 mg tablet
10 mg PO HS
albuterol sulfate 90 mcg/actuation HFA aerosol inhaler
2 puff INHALATION R Q4HPRN PRN (Reason: sob/wheezing)
escitalopram oxalate 10 mg tablet
10 mg PO HS
Patient Comments:
07/06/2023: Supposed to take at HS, but per family they think pt is taking in the am per pill boxes
cholecalciferol (vitamin D3) 50 mcg (2,000 unit) capsule
50 mcg PO DAILY
Discharge Orders:
Discharge Patient (As Directed); Ordered 07/10/23
Ordered By: Raz Bartholomew
Discharge Date and Time
Discharge Date/Time: 07/10/23 17:10
Print Language: SLOVAK
--- NOTE | 2023-07-10 12:05 | CM ---
Patient has been medically cleared for discharge to [facility] for senior care and rehab services. Transport to be scheduled. Patient, daughter, Team and [facility] admissions notified.
NURSE TO NURSE REPORT # [phone]
FAX # [phone]
--- NOTE | 2023-07-10 12:09 | PN.CDI ---
CDI
- -
CDI:
Physician Documentation Request
Admit Date: 07/06/23 21:44
Dear Doctor Puma,
Patient presented to ED after fall complaining of left groin pain. Found to have acute fractures of left superior/inferior pubic rami with adjacent intramuscular hemorrhage.
CT pelvis finding include 'The bones appear diffusely osteoporotic'
Please provide further specificity regarding the diagnosis of fracture:
Etiology
Traumatic
Pathologic due to osteoporosis
Due to a combination of trauma and a pathological process
but the trauma alone would not likely have been sufficient
to cause the fracture
Use of terms such as suspected, likely, concern for, or probable (associated with a specific diagnosis that is being evaluated, monitored, or treated as if it exists) are acceptable and can be coded in the inpatient setting, when documented at the
time of discharge.
Thank you,
Esme Hu RN, BSN
CDI Specialist
tiger text
Please use your independent medical judgment in providing your response.
[2023-07-10] MEDS: FERRLECIT 110 MG IV (14:16)
--- NOTE | 2023-07-10 14:56 | PTCARENOTE ---
report called to macie at [facility]. discharge instructions faxed to [facility].
== END 2023-07-10 17:10 | DRG 536 ==
LOC: 2 SOUTH 21:44
PROVIDERS: Emergency Medicine; Internal Medicine; ADMITTING PHYSICIAN Hospitalist; ATTENDING PHYSICIAN Internal Medicine; EMERGENCY PHYSICIAN Emergency Medicine; FAMILY PHYSICIAN Nurse Practitioner
DX: S32.512A Fracture of superior rim of left pubis, initial encounter for closed fracture (principal); M80.8B Other osteoporosis with current pathological fracture, pelvis; F03.93 Unspecified dementia, unspecified severity, with mood disturbance; F03.94 Unspecified dementia, unspecified severity, with anxiety; M80.0AXA Age-related osteoporosis with current pathological fracture, other site, initial encounter for fracture; I10 Essential (primary) hypertension; E78.00 Pure hypercholesterolemia, unspecified; F32.A Depression, unspecified; J45.998 Other asthma; K59.00 Constipation, unspecified; D50.0 Iron deficiency anemia secondary to blood loss (chronic); Z86.73 Personal history of transient ischemic attack (TIA), and cerebral infarction without residual deficits; M25.512 Pain in left shoulder; W19.XXXA Unspecified fall, initial encounter
CPT/HCPCS: 70450; 72192; 73030; 80048; 80053; 81003; 81015; 82607; 83540; 83550; 83735; 84100; 84484; 85014; 85018; 85025; 85027; 86850; 86900; 86901; 93005; 96360; 96361; 97110; 97116; 97163; 97166; 97530; 97535; 99285; J2916

== ENCOUNTER → 2023-07-17 11:31 | Outpatient (REF) | payer MEDICARE, OTHER, SELFPAY ==
[2023-07-17 14:30] LABS: Blood Urea Nitrogen 22 mg/dl (7-17); Calcium 8.6 mg/dl (8.4-10.2); Carbon Dioxide 27 mmol/L (22-30); Chloride 103 mmol/L (98-107); Glucose 85 mg/dl (70-99); Potassium 4.2 mmol/L (3.5-5.1); Sodium 135 mmol/L (135-145); eGFR > 60.00
== END ==
LOC: OLABP 11:31
PROVIDERS: ATTENDING PHYSICIAN Student in an Organized Health Care Education/Training Program
DX: R26.2 Difficulty in walking, not elsewhere classified (principal)
CPT/HCPCS: 36415; 80048

== ENCOUNTER 2024-02-23 15:43 | Inpatient (IN) | payer MEDICARE, OTHER, SELFPAY ==
[2024-02-22] VITALS (9 sets, daily range): BP systolic 111–173; BP diastolic 66–99; BMI 23.9
--- NOTE | 2024-02-22 17:54 | ED.GENMED ---
ED Provider Triage
<Nabor Lam PA-C - Last Filed: 02/22/24 17:55>
-
Patient seen by provider in Triage?: Seen in Triage
Attestation: A medical screening examination has been initiated by a qualified medical provider. Based on the assessment performed at this time, it has been determined that an emergent medical condition may exist and the patient has been informed
that further medical evaluation and possible additional diagnostic testing may be needed.
HPI: 78-year-old female past medical history of dementia presenting to the ER for lower extremity edema and multiple episodes of near syncope today per aide who cares for the patient. Patient is without any specific complaints but per family not a
reliable historian. Patient does have obvious edema to the bilateral lower extremities. Labs and stat EKG ordered.
GENERAL: Alert , in no apparent distress
EYE: No visual abnormalities.
NECK: Trachea midline
ENT: No visible abnormalities.
LUNGS: No acute respiratory distress
NEUROLOGICAL: Alert and oriented
SKIN: Skin intact. No visible changes.
MUSCULOSKELETAL: Moving extremities normally
PSYCH: Normal and appropriate interaction.
This is a medical evaluation conducted in person to initiate diagnostic evaluation and provide initial therapeutics. Please see further documentation by the treating clinician.
History of Present Illness
<Nabor Lam PA-C - Last Filed: 02/22/24 17:55>
General
Chief Complaint: Fainting Sensation
Time Seen by Provider: 02/22/24 18:02
<Jenaro Petty DO - Last Filed: 02/22/24 21:17>
General
Source: patient, records and family
Exam Limitations: dementia
Nursing documentation reviewed up to this point in time: agreed with
History of Present Illness
History of Present Illness:
Patient is an 78-year-old female with a history of dementia who presents to the emergency department with increasing edema of the lower extremities for the past 24 to 48 hours with associated erythema. Patient denies fever or chills. Patient
denies shortness of breath or cough. Patient denies any history of vascular insufficiency or DVT or PE. Patient denies orthopnea, chest pain or palpitations. Patient denies any GI or symptoms. Reportedly the patient's never had this problem
before. In addition over the past couple days patient's had near syncopal episodes that do not seem to be precipitated by any particular event. This is all new.
Past History
<Nabor Lam PA-C - Last Filed: 02/22/24 17:55>
Past History
ED Past Medical History: Asthma, HTN, Hypercholesterolemia and Other (Dementia, UTI, Pelvic fracture from Trauma)
ED Past Surgical History: Cholecystectomy and Orthopedic (Right hip replacement, Bilateral arm pins, Back surgery, )
Social History
Tobacco: Non-smoker
Alcohol: Occasional
Personal:
Living: with family
<DO Nohemi Mahoney Last Filed: 02/22/24 21:17>
Past History
ED Past Medical History: Other (Dementia, UTI, Pelvic fracture from Trauma, anxiety depression)
Review of Systems
<DO Nohemi Mahoney Last Filed: 02/22/24 21:17>
Review of Systems
Unable to obtain full review of systems at this time due to: dementia
All Other Systems: Not applicable
Phy Exam
<DO Nohemi Mahoney Last Filed: 02/22/24 21:17>
Physical Exam
Physical Exam:
Physical Exam
General: No apparent distress, alert and appropriate, well nourished, well hydrated
HENT: Normocephalic, supple with no lymphadenopathy, no thyromegaly
Eyes: Clear sclera, conjuctiva without injection
Heart: Regular rhythm and rate. No S3, S4. No murmur. No NVD, bruit
Lungs: No respiratory distress, no stridor, lung sounds clear and equal bilaterally, chest wall symmetrical and nontender
Abdomen: Soft, nontender, no organomegaly, no CVA tenderness, BS good
Neuro: Alert and oriented to person, CN II - XII intact, no motor focality
Skin: Erythema of bilateral lower extremities, see below
Psychiatric: well kept. interactive and cooperative
Extremities: No cyanosis, tenderness. Left lower extremity from the knee distally +1 to +2 pitting edema especially of the foot with erythema of the skin. On the right trace pretibial edema with plus one of the foot and
ankle. Also erythematous but not to the extent of the left
Course
<Nabor Lam PA-C - Last Filed: 02/22/24 17:55>
Orders/Labs/Results
Orders:
Orders
02/22/24 17:53
Electrocardiogram (*1) Urgent
Reason for Study: Syncope
EKG- Treatment ONCE
02/22/24 18:11
Basic Metabolic Panel Urgent
Complete Blood Count/With Diff Urgent
NT-proBNP Urgent
TSH Reflex To Free T4 Urgent
Troponin I Urgent
02/22/24 19:31
US Periph Venous LOWER Ext Abebe Urgent
Comment:
Reason For Exam: swollen
02/22/24 21:03
Furosemide [Lasix] 60 mg IV NOW STA
02/22/24 21:04
CeFAZolin 1 GRAM [Ancef] 1 gram in 5 ml IV NOW
02/22/24 22:00
Flush (0.9% Sodium Chloride) [Flush (Nss)] See Dose Instructions IV PER PROTOCOL
Abnormal Lab Results
02/22/24
18:11
RBC 3.66 L 10^6/uL
(4.20-5.40)
Hgb 11.3 L g/dL
(12.0-16.0)
Hct 35.6 L %
(37.0-47.0)
MCHC 31.7 L g/dL
(33.0-37.0)
Absolute Monos (auto) 0.7 H 10^3/uL
(0.1-0.6)
Monocytes % 10.0 H %
(1.7-9.3)
Carbon Dioxide 35 H mmol/L
(22-30)
BUN 27 H mg/dl
(7-17)
02/22/24 18:11
02/22/24 18:11
Vital Signs
Initial and Last Documented VS:
Initial Vital Signs
Temp Pulse Resp BP Pulse Ox
98.3 F 78 18 111/78 96
02/22/24 17:51 02/22/24 17:51 02/22/24 17:51 02/22/24 17:51 02/22/24 17:51
Last Documented Vital Signs
Temp Pulse Resp BP Pulse Ox
98.5 F 78 17 151/66 98
02/22/24 18:17 02/22/24 18:42 02/22/24 18:42 02/22/24 18:42 02/22/24 18:42
Lilibethlt;Jenaro Petty, DO - Last Filed: 02/22/24 21:17>
Orders/Labs/Results
Orders:
Orders
02/22/24 17:53
Electrocardiogram (*1) Urgent
Reason for Study: Syncope
EKG- Treatment ONCE
02/22/24 18:11
Basic Metabolic Panel Urgent
Complete Blood Count/With Diff Urgent
NT-proBNP Urgent
TSH Reflex To Free T4 Urgent
Troponin I Urgent
02/22/24 19:31
US Periph Venous LOWER Ext Abebe Urgent
Comment:
Reason For Exam: swollen
02/22/24 21:03
Furosemide [Lasix] 60 mg IV NOW STA
02/22/24 21:04
CeFAZolin 1 GRAM [Ancef] 1 gram in 5 ml IV NOW
02/22/24 22:00
Flush (0.9% Sodium Chloride) [Flush (Nss)] See Dose Instructions IV PER PROTOCOL
Abnormal Lab Results
02/22/24
18:11
RBC 3.66 L 10^6/uL
(4.20-5.40)
Hgb 11.3 L g/dL
(12.0-16.0)
Hct 35.6 L %
(37.0-47.0)
MCHC 31.7 L g/dL
(33.0-37.0)
Absolute Monos (auto) 0.7 H 10^3/uL
(0.1-0.6)
Monocytes % 10.0 H %
(1.7-9.3)
Carbon Dioxide 35 H mmol/L
(22-30)
BUN 27 H mg/dl
(7-17)
02/22/24 18:11
02/22/24 18:11
Vital Signs
Initial and Last Documented VS:
Initial Vital Signs
Temp Pulse Resp BP Pulse Ox
98.3 F 78 18 111/78 96
02/22/24 17:51 02/22/24 17:51 02/22/24 17:51 02/22/24 17:51 02/22/24 17:51
Last Documented Vital Signs
Temp Pulse Resp BP Pulse Ox
98.5 F 78 17 151/66 98
02/22/24 18:17 02/22/24 18:42 02/22/24 18:42 02/22/24 18:42 02/22/24 18:42
Lilibethlt;Jenaro Petty DO - Last Filed: 02/22/24 21:17>
*Pulse Oximetry
Patient hypoxic: no
*EKG
Interpreted by ED Provider?: Yes
EKG Intrepretation Date: 02/22/24
EKG Intrepretation Time: 21:02
Interpretation: normal
Comparison EKG: no changes
Heart Rate: 67
Rate: normal
Rhythm: sinus
Alpha: normal axis
Interval: normal interval
QRS Pattern: normal QRS
Ischemia: no ischemia
*Rolled Ham Lacer Interpretation
Rate: normal
Interpretation: normal
Heart Rate: 67
Rhythm: sinus
*Critical Care Note
Total Time (30-74mins, 75-104mins- exclusive of procedures): Not Applicable
<Jenaro Petyt DO - Last Filed: 02/22/24 21:17>
Update Note
Update Note:
Patient's near syncopal episodes are concerning. Awaiting the ultrasound at this time. Unsure the reason for the acute onset of the edema of the lower extremities and whether this could possibly be cellulitis based on the physical exam. I doubt
this is a DVT. Does not appear to be heart failure. Patient will be admitted.
ED Attending Note
<Nabor Lam PA-C - Last Filed: 02/22/24 17:55>
-
Portions of this chart may have been created with voice recognition software.� Occasional wrong word or��sound alike� substitutions may have occurred due to the inherent limitations of voice recognition software.
Discharge Plan
Departure
Patient Disposition: Admit
Date of Disposition: 02/22/24
Time of Disposition: 21:09
Admit to: Med/Surg
Admit to doctor: Hospitalist
Presentation/result/management discussed w/ accepting MD/DO: Hospitalist
Patient with high blood pressure during this ER visit?: No
Condition: Fair
Covid-19: Not Applicable
Discharge Problem:
Cellulitis, Bilateral lower extremity edema
Prescriptions:
No Action
atorvastatin 20 mg tablet
20 mg PO DAILY
amlodipine 5 mg tablet
5 mg PO DAILY
montelukast 10 mg tablet
10 mg PO HS
albuterol sulfate 90 mcg/actuation HFA aerosol inhaler
2 puff INHALATION R Q4HPRN PRN (Reason: sob/wheezing)
escitalopram oxalate 10 mg tablet
10 mg PO HS
cholecalciferol (vitamin D3) 50 mcg (2,000 unit) capsule
50 mcg PO DAILY
aspirin [Children's Aspirin] 81 mg Tablet,Chewable
81 mg PO DAILY Qty: 0 0RF
sennosides-docusate sodium [Stool Softener-Stimulant Laxat] 8.6-50 mg Tablet
1 tab PO BIDPRN PRN (Reason: constipation) Qty: 0 0RF
cyanocobalamin (vitamin B-12) 1,000 mcg Tablet
1,000 mcg PO DAILY Qty: 0 0RF
ferrous gluconate 324 mg (37.5 mg iron) tablet
324 mg PO DAILY Qty: 1 0RF
escitalopram oxalate 5 mg tablet
5 mg PO HS
acetaminophen [Tylenol Extra Strength] 500 mg tablet
1,000 mg PO TIDPRN PRN (Reason: mild pain)
Referrals:
Mirna,Ruchi, DO [Family Provider] -
Interventions
Interventions:
*Risk Screen - Suicide Last Done: 02/22/24 18:17
*General Assessment Last Done: 02/22/24 18:17
*Neglect/Abuse Screening Last Done: 02/22/24 18:17
ED- Fall Risk Assessment Last Done: 02/22/24 18:17
*ED COVID-19 Vaccine History Last Done: 02/22/24 18:17
ED- Cardiac Assessment Last Done: 02/22/24 18:17
ED- Neurological Assessment Last Done: 02/22/24 18:17
Discharge Date and Time
Print Language: TURKISH
[2024-02-22 18:23] LABS: % Basophils 0.6 % (0-2); % Eosinophils 1.9 % (0-6); % Immature Granulocytes 0.3 % (0-0.5); % Lymphocytes 20.9 % (20.5-51.1); % Neutrophils 66.3 % (42.2-75.2); Absolute Eosinophils 0.1 10^3/uL (0-0.7); Absolute Lymphocytes 1.5 10^3/uL (1.2-3.4); Absolute Monocytes 0.7 10^3/uL (0.1-0.6); Absolute Neutrophils 4.6 10^3/uL (1.4-6.5); Hematocrit 35.6 % (37.0-47.0); Hemoglobin 11.3 g/dL (12.0-16.0); Mean Corp Hgb Conc. 31.7 g/dL (33.0-37.0); Mean Corpuscular Hgb 30.9 pg (27.0-31.0); Mean Corpuscular Volume 97.3 fL (81.0-99.0); Mean Platelet Volume 9.3 fL (7.4-10.4); Nucleated Red Blood Cells % 0 %; Platelet Count 294 10^3/uL (130-400); Red Blood Cell Count 3.66 10^6/uL (4.20-5.40); Red Cell Dist. Width 13.1 % (11.5-14.5); White Blood Cell Count 6.9 10^3/uL (4.8-10.8)
[2024-02-22 18:41] LABS: Blood Urea Nitrogen 27 mg/dl (7-17); Calcium 8.8 mg/dl (8.4-10.2); Carbon Dioxide 35 mmol/L (22-30); Chloride 101 mmol/L (98-107); Estimated Creatinine Clearance 70 ml/min; Glucose 98 mg/dl (70-99); Potassium 3.7 mmol/L (3.5-5.1); Sodium 142 mmol/L (135-145); eGFR > 60.00
[2024-02-22 18:46] LABS: NT-proBNP 506 pg/ml; Troponin I < 0.012 ng/ml
--- NOTE | 2024-02-22 21:28 | HPS.HSE ---
Family Physician
-
Family Physician: Ruchi Bradley
Chief Complaint
-
Bilateral leg edema
History of Present Illness
78-year-old female with history of dementia who presented to the ER with 2 near syncopal episodes today at home. She lives alone in her home in [facility] and has private aides there 7 days a week 3 days 12-4 2 days 12-9 and 1 day for 2
hours. Her daughter is at bedside and was told by the aide her mother has bilateral lower extremity edema with erythema over the past 24 to 48 hours and had edema to bilateral lower legs last week. According to ER record patient has never had this
problem before. The patient is without fever, chills, shortness breath, cough, diaphoresis, orthopnea, chest pain, abdominal pain, nausea, vomiting, diarrhea. She has past medical history of hypertension, asthma, HLD, dementia oriented to name,
daughter, some of history but needs prompts and reminders for basic ADLs, anxiety/depression, UTIs, pelvic fracture from trauma left superior/inferior pubic rami with adjacent intramuscular hemorrhage 07/06/2023, chronic lacunar infarct right basal
ganglia, right thalamus, constipation, anemia of chronic disease, B12 deficiency
Medical History
Past Medical History
Past Medical History: Reports Other
Additional Past Medical History:
Chronic dizziness starting June 2023
hypertension
asthma
HLD
Known cardiac murmur and echo many years ago at [facility]
Vascular dementia-mild/moderate dementia oriented to name, daughter, some of history but needs prompts and reminders for basic ADLs
chronic lacunar infarct right basal ganglia, right thalamus
anxiety/depression
UTIs
pelvic fracture from trauma left superior/inferior pubic rami with adjacent intramuscular hemorrhage 07/06/2023
constipation
anemia of chronic disease
B12 deficiency
Past Surgical History: Reports Other (Cholecystectomy and Orthopedic (Right hip replacement, Bilateral arm pins, Back surgery, ))
Social History
Tobacco: Non-smoker
Alcohol: Occasional
Drug: None
Personal: Single
Living: Alone
Employment: Retired
Family History
Family History: Not pertinent
Allergies / Home Medications
Allergies reflects when Allergies were last updated in [facility].
Home Medications with original date entered in [facility]
Allergy/Medication List:
Allergies
Allergy/AdvReac Type Severity Reaction Status Date / Time
Iodinated Contrast Media Allergy Mild Unknown Verified 07/06/23 18:26
Home Medications
albuterol sulfate 90 mcg/actuation aerosol inhaler 2 puff inhalation R Q4HPRN PRN sob/wheezing 07/06/23
amlodipine 5 mg tablet 5 mg PO DAILY Blood Pressure 07/06/23
atorvastatin 20 mg tablet 20 mg PO DAILY High Cholesterol 07/06/23
cholecalciferol (vitamin D3) 50 mcg (2,000 unit) capsule 50 mcg PO DAILY Supplement 07/06/23
escitalopram oxalate 10 mg tablet 10 mg PO HS taken w/ 5mg = 15mg 07/06/23
montelukast 10 mg tablet 10 mg PO HS asthma/allergies 07/06/23
aspirin 81 mg chewable tablet (Children's Aspirin) 81 mg PO DAILY #0 tabs 07/10/23
cyanocobalamin (vitamin B-12) 1,000 mcg tablet 1,000 mcg PO DAILY #0 tabs 07/10/23
ferrous gluconate 324 mg (37.5 mg iron) tablet 324 mg PO DAILY #1 tab 07/10/23
sennosides 8.6 mg-docusate sodium 50 mg tablet (Stool Softener-Stimulant Laxative) 1 tab PO BIDPRN PRN constipation #0 tabs 07/10/23
acetaminophen 500 mg tablet (Tylenol Extra Strength) 1,000 mg PO TIDPRN PRN mild pain 02/22/24
escitalopram oxalate 5 mg tablet 5 mg PO HS taken w/ 10mg = 15mg 02/22/24
Review of Systems
-
History Source: Patient and Family (Daughter at bedside)
A 12 point ROS was completed and negative except as noted: Yes
Constitutional: Denies Fatigue
EENT: Denies Sore Throat or Runny Nose
Respiratory: Denies Cough or Trouble Breathing
Cardiac: Reports Other (Reported near syncope x 2 from patient's aide to daughter); Denies Chest Pain, Diaphoresis or Palpitations
Abdomen/GI: Denies Abdominal Pain, Nausea, Vomiting, Diarrhea or Constipated
: Reports Incontinence (Chronic wears depends); Denies Dysuria, Flank Pain or Urgency
Musculoskeletal: Reports Edema (+2 lower feet to just above lower knees bilaterally with slight pink erythema both legs left greater than right); Denies Joint Pain
Skin: Denies Itching or Rash
Neurological: Denies Dizzy, Headache or Weakness
Endocrine: Reports No Symptoms
Hematologic/Lymphatic: Reports No Symptoms
Psych: Reports Calm
Physical Exam
Vital Signs
Vital Signs
Temp Pulse Resp BP Pulse Ox
98.5 F 78 17 151/66 98
02/22/24 18:17 02/22/24 18:42 02/22/24 18:42 02/22/24 18:42 02/22/24 18:42
Physical Exam
General: No Apparent Distress, Comfortable, Conversant and Other (Walk to the bathroom with steady gait); No Fever, Chills or Slurred Speech
HEENT: NormoCephalic, Anicteric, Moist mucous membranes, PERRLA, [place] Conjunctivae and No Ptosis
Respiratory: Clear; No Wheezes, Rales or Rhonchi
Cardiac: S1/S2, Regular Rhythm and Peripheral Edema (+2 lower feet to just above lower knees bilaterally with slight pink erythema both legs left greater than right); No Murmur, Rub or Gallop
GI: Soft, Non Tender, Non Distended and Normal Bowel Sounds
Rectal: Deferred by Provider
Genito-urinary: Deferred by me
Musculoskeletal: No Clubbing, No Cyanosis, Edema, Left Lower Extremity (+2 lower feet to just above lower knees bilaterally with slight pink erythema both legs left greater than right) and Edema, Right Lower Extremity (+2 lower feet to just above
lower knees bilaterally with slight pink erythema both legs left greater than right); No Edema, Left Upper Extremity or Edema, Right Upper Extremity
Skin: Warm and Dry; No Rash or Ulcers
Neuro: Awake, Alert, Oriented (Oriented to name, daughter, place of living, some of history does need prompts for ADLs per daughter), No Motor Deficits (Uses cane walk to bathroom with steady gait), Cranial Nerves Intact and No Sensory Deficits; No
Slurred Speech, Facial Droop, Tremors or Sedated
Psych: Calm and Agitated (Gets agitated with change such as pure wick being placed)
Laboratory Results
-
02/22/24 18:11
02/22/24 18:11
Laboratory Results
Troponin I < 0.012 ng/ml 02/22/24 18:11
Impression/Plan
-
Impression/plan:
Observation telemetry
#Near syncope x 2
#History of dizziness dating back to June 2023 with no orthostasis at that time
-Check orthostatic vitals
-Check 2D echo
EKG: NSR 67 bpm, QTc 452 MS otherwise normal
#Known cardiac murmur
#Bilateral leg edema with uncertain etiology concern abdominal compressive disorder
-IV Lasix 60 mg given in ER IV will monitor output
-Will check CT abdomen pelvis with contrast for intra-abdominal process
Ultrasound lower extremities bilateral: No evidence of venous thrombus
#Bilateral leg erythema concern for cellulitis versus venous stasis
-IV Ancef given in ER will continue
# Vascular dementia hx
History of lacunar infarcts moderate bilateral frontal and temporal lobe volume loss on CT 07/06/2023
- dementia oriented to name, daughter, some of history but needs prompts and reminders for basic ADLs
-Fall precautions
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
-Continue ASA 81 mg daily started
-Continue statin
CT head 07/06/2023: Severe white matter leukoaraiosis in both cerebral hemispheres,
small chronic lacunar infarct right basal ganglia right thalamus,
moderate bilateral frontal and temporal lobe volume loss
Brain MRI 09/11/2022 no acute intracranial abnormality noted. Chronic senescent changes
#Essential hypertension
-Continue amlodipine
#Asthma-no acute exacerbation
-Continue montelukast, albuterol
#Hypercholesterolemia
-cont statin
#Anxiety/depression
-Continue Lexapro 15 mg at bedtime
Hx fall June 2023 with fractures of left superior/inferior pubic rami with adjacent intramuscular hemorrhage
#Left Shoulder Pain/severe degenerative osteoarthritis
#Anemia
#Anemia of Chronic Disease
#B12 deficiency
Hgb 11.3, MCV 97.3
-Continue vitamin B12 supplement, ferrous gluconate 324 mg daily
#constipation hx
Continue senna/docusate
DVT prophylaxis�
CPR/no intubation
[2024-02-22] MEDS: LASIX 60 MG IV (21:42)
--- NOTE | 2024-02-22 21:44 | W.PN.UPDATE ---
Update Note
Progress Note Update
This note serves as an addendum to the H&P by plate shear operator AL María HORAN,
HPI
78F with dementia prior HX suggestive of dizziness/ near syncope , HX murmur, asthma, hypertension, hypercholesteremia, fall , pelviv Fx, Rt THR seen at ER:
- evaluation of increasing edema of the lower extremities for the past 24 to 48 hours with associated erythema.
- In addition over the past couple days patient's had near syncopal episodes that do not seem to be precipitated by any particular event.
ROS:
- denies fever or chills.
- denies shortness of breath or cough
- denies any history of vascular insufficiency or DVT or PE.
- denies orthopnea, chest pain or palpitations.
Reviewed VS: unremarkable
Vital Signs
Temp Pulse Resp BP Pulse Ox
98.5 F 78 17 151/66 98
02/22/24 18:17 02/22/24 18:42 02/22/24 18:42 02/22/24 18:42 02/22/24 18:42
GENERAL: Alert , in no apparent distress
EYE: No visual abnormalities.
NECK: No JVD , no neck bruit
ENT: No visible abnormalities.
LUNGS: No acute respiratory distress
Cor; hi pitched loud systolic murmur at Lt LSB
NEUROLOGICAL: Alert and oriented
SKIN: Skin intact. No visible changes.
MUSCULOSKELETAL: b/l Hussein pitting edema with equivocal distal Hussein borderline erythema and warmth. No clear demarcation
PSYCH: Normal and appropriate interaction.
Abnormal Lab Results
02/22/24
18:11
RBC 3.66 L
Hgb 11.3 L
Hct 35.6 L
MCHC 31.7 L
Absolute Monos (auto) 0.7 H
Monocytes % 10.0 H
Carbon Dioxide 35 H
BUN 27 H
pro BNP 506
02/22/24 B/L Hussein US:
No sonographic evidence for lower extremity venous thrombosis.
Last hospitalist admission: Date of Admission: 07/06/23 - Date of Discharge: 07/10/23
DC Dxs:
Acute fractures of left superior/inferior pubic rami with adjacent intramuscular hemorrhage
Anemia
Left shoulder pain
Constipation
Old Stroke
ASSESSMENT & PLAN
Worsening B/L Hussein edema with erythema for last 2wwek : S/p IV Lasix 60 x 1 at ER
No prior HX Hussein edema. No prior HX Cellulitis
DDX: questionable b/l Hussein cellulitis , r/o pelvic compression patho
- Afebrile . No WCC
- NEG Sono evidence of DVT
- No clinical evidence of acute CHF
- CT AP to eval for pelvic compression
- agree with empiric IV Cefazolin and f/u clinically
- to consider compression if w/u are unremarkable
Dizziness/possible syncope
- No IVF at ER
- Initial BP 111/78. Last BP 155/65
- Check orthostatic vital signs
- fall precaution
HX Murmur
HX mitral insufficiency
- ECHO in AM
Dementia suspect vascular origin
HX small chronic lacunar infarct in right basal ganglia, right thalamus
HX Hypercholesterolemia
- on [employer]IST ASA
- on [employer]IST statin
Essential hypertension
- Continue amlodipine
Asthma
- Continue montelukast, albuterol
Anxiety/depression
- Continue Lexapro
DVT Px: SQH
DNI but yes to CPR, chemical resus per GEOMAGNETICIAN daughter
Obs MS
[2024-02-22] MEDS: ANCEF 5 IV (22:10)
[2024-02-22] MEDS: FLUSH (NSS) 1 FLUSH IV (22:22)
[2024-02-23] VITALS (8 sets, daily range): BP systolic 137–178; BP diastolic 60–79; PULSE 69–77; O2SAT 96–97; BMI 21.8
[2024-02-23 00:28] LABS: Urine Albumin Negative (Neg - Trace); Urine Bilirubin Negative (Negative); Urine Character Clear (Clear); Urine Color Straw; Urine Glucose Negative (Negative); Urine Ketone Negative (Negative); Urine Leukocyte Trace (Negative); Urine Nitrite Negative (Negative); Urine Occult Blood Negative (Negative); Urine Urobilinogen Negative (Neg - 1+)
--- NOTE | 2024-02-23 00:58 | W.PN.UPDATE ---
Update Note
Progress Note Update
Radiology asked for review of contrast CTAP study.
Patient has IV contrast allergy of unknown severity with limited DNR (no intubation).
The contrast CT AP is to evaluate for compressive syndrome such as May heath / ilio caval obstruction. In the absence of DVT in the bilateral femoral, unlikely more proximal DVT and no immediate management changes.
Advice consideration of MR venography / Vascular consult & further determination of allergy severity and possible pre-treatment for contrast allergy in am before attempting a contrast CT study.
Requested radiology to cancel the order till day team review in am.
[2024-02-23 01:36] LABS: Urine Bacteria Many (Negative); Urine Red Blood Cell 0-2 /HPF (0-2)
[2024-02-23] MEDS: ANCEF IV (06:04)
[2024-02-23] MEDS: ANCEF 5 IV (06:45)
[2024-02-23 07:00] LABS: % Basophils 0.4 % (0-2); % Immature Granulocytes 0.3 % (0-0.5); % Lymphocytes 23.5 % (20.5-51.1); % Monocytes 10.6 % (1.7-9.3); % Neutrophils 63.2 % (42.2-75.2); Absolute Eosinophils 0.2 10^3/uL (0-0.7); Absolute Lymphocytes 1.8 10^3/uL (1.2-3.4); Absolute Monocytes 0.8 10^3/uL (0.1-0.6); Absolute Neutrophils 4.8 10^3/uL (1.4-6.5); Hematocrit 34.4 % (37.0-47.0); Hemoglobin 11.5 g/dL (12.0-16.0); Mean Corp Hgb Conc. 33.4 g/dL (33.0-37.0); Mean Corpuscular Hgb 31.3 pg (27.0-31.0); Mean Corpuscular Volume 93.7 fL (81.0-99.0); Mean Platelet Volume 9.9 fL (7.4-10.4); Nucleated Red Blood Cells % 0 %; Platelet Count 293 10^3/uL (130-400); Red Blood Cell Count 3.67 10^6/uL (4.20-5.40); White Blood Cell Count 7.6 10^3/uL (4.8-10.8)
[2024-02-23 07:28] LABS: ALT (SGPT) 17 U/L (0-35); AST (SGOT) 22 U/L (14-36); Albumin 3.5 g/dl (3.5-5.0); Alkaline Phosphatase 80 U/L (38-126); Blood Urea Nitrogen 17 mg/dl (7-17); Calcium 8.4 mg/dl (8.4-10.2); Carbon Dioxide 39 mmol/L (22-30); Chloride 99 mmol/L (98-107); Estimated Creatinine Clearance 70 ml/min; Glucose 107 mg/dl (70-99); HDL Cholesterol 94 mg/dl; LDL Cholesterol, Calculated 71 mg/dl; Potassium 2.9 mmol/L (3.5-5.1); Sodium 141 mmol/L (135-145); Total Bilirubin 0.5 mg/dl (0.2-1.3); Total Cholesterol 173 mg/dl (50-199); Total Protein 5.8 g/dl (6.3-8.2); Triglyceride 43 mg/dl (10-149); Very Low Density Lipoprotein 8 mg/dl (0-30); eGFR > 60.00
[2024-02-23 08:14] LABS: Vitamin B12 394 pg/ml (239-931)
[2024-02-23] MEDS: NORVASC 5 MG PO (08:41)
[2024-02-23] MEDS: VITAMIN B-12 1000 MCG PO (08:42)
[2024-02-23] MEDS: VITAMIN D3 (cholecalciferol) 50 MCG PO (08:42)
[2024-02-23] MEDS: LOW STRENGTH ASPIRIN 81 MG PO (08:42)
[2024-02-23] MEDS: FEOSOL 325 MG PO (08:42)
[2024-02-23] MEDS: LIPITOR 20 MG PO (08:42)
--- NOTE | 2024-02-23 10:47 | W.PN.HOSP.TC ---
Today's Communication/Plan
-
Echo.
Carotid ultrasound.
CT scan of the head.
Observe off diuretics.
Observe off antibiotics.
PT evaluation/orthostatic vitals
Discharge planing
Assessment / Plan
Assessment / Plan
Impression:
Presentation with described near syncope present at home x 2
Mild bilateral lower extremity edema.
Other conditions:
Dementia possibly vascular type
History of lacunar infarcts.
Essential hypertension.
Dyslipidemia.
Asthma without exacerbation
Plan:
Describe near syncope episodes at home.
No focal findings on exam
ECG with normal sinus rhythm
Known systolic murmur
Prior brain imaging reviewed with old lacunar infarcts.
Check orthostatics.
CT head.
Echocardiogram.
Carotid ultrasound
Physical therapy evaluation.
Bilateral lower extremity edema very mild.
No clinical evidence of CHF
Status post single dose of Lasix 60 mg provided in ED. No clear indication for additional diuresis.
Bilateral lower extremity erythema without induration, doubt cellulitis.
Doppler negative for DVT.
Observe off antibiotics.
Patient is on low-dose of amlodipine, could be contributing to edema.
Essential hypertension
Continue amlodipine 10
Dyslipidemia
Continue statin.
Dementia suspect vascular type
Hypokalemia secondary to loop diuretics
Replete potassium
Anticipated Discharge: 24 - 48 hours
Subjective/Interval History
-
Date of Service: February 23, 2024
Objective Data
-
Labs:
Laboratory Results
02/23/24
06:18
WBC 7.6
Hgb 11.5 L
Hct 34.4 L
Plt Count 293
Sodium 141
Potassium 2.9 L
Chloride 99
Carbon Dioxide 39 H
BUN 17
Creatinine 0.4 L
Glucose 107 H
Calcium 8.4
Total Bilirubin 0.5
AST 22
ALT 17
Alkaline Phosphatase 80
Vital Signs:
Vital Signs
Temp Pulse Resp BP Pulse Ox
98.2 F 82 19 145/61 95
02/23/24 07:20 02/23/24 08:41 02/23/24 07:20 02/23/24 08:41 02/23/24 07:20
I&O
02/22/24 02/23/24 02/24/24
06:59 06:59 06:59
Output Total 2099
Balance -2099 / -2099
Physical Exam
-
General: Well Developed and No Apparent Distress
HEENT: Normocephalic, Atraumatic and Moist Mucous Membranes
Respiratory: Clear to Auscultation
Cardiac: Regular Rhythm, S1/S2 and Murmur (Systolic 3/4); Negative Rub or Gallop
GI: Soft, Nontender, Nondistended and Normal Bowel Sounds; Negative Organomegaly
Rectal: Deferred by Provider
Musculoskeletal: No Clubbing, No Cyanosis and No Edema
Skin: Negative Rash
Neuro: Awake, Alert, Oriented (Name only) and Nonfocal/Grossly Intact
[2024-02-23] MEDS: KCL 40 MEQ PO (11:50)
--- NOTE | 2024-02-23 13:11 | W.PN.UPDATE ---
Update Note
Progress Note Update
Echocardiogram with severe aortic stenosis
Will ask cardiology to evaluate
--- NOTE | 2024-02-23 15:06 | CON.CAR ---
Addendum entered and electronically signed by Asaf Torres MD 02/23/24 18:29:
78 yo female with PMH of HTN, advanced dementia is admitted with SOB, edema, dizziness. No chest pain. Exam with RRR, III/ systolic murmur at RUSB, 1+ LE edema. Echo shows EF 60-65%, severe , mild/mod MR, moderate TR.
Acute HFPEF, in setting of severe . Continue lasix at 40mg IV daily, with close monitoring of labs, tele, weight. PT/OT/palliative care consult.
I discussed in detail with patient, daughter, son. Plan is med management only. No plans for TAVR. We discussed that severe is fatal if left untreated, and all questions were answered. Given patient's dementia, no procedures will be
pursued. They will pursue palliative care, but not yet hospice at this time.
Original Note:
Consultation
Consultation Request
Date/Time Consultation Requested: 02/23/24 1p
Date/Time Consultation Performed: 02/23/24 2:30p
Requesting Provider: Dr. Hernandez
Performing Provider: ZACKARY Garza for Dr. Torres
Reason for Consultation: severe on echo
Medical History
-
Chief Complaint: SOB, LE edema
History of Present Illness:
Mrs. Rizzo is an 78 yo female with dementia, asthma, HLD, anemia, anxiety/depression, CVA (lacunar infarct) and HTN, who presents from home with c/o LE edema and SOB at home. She lives alone but does have private aides there several days a week.
She is admitted to the hospitalist service and we are consulted for severe on echo. She is unable to provide history as she is not oriented. Her daughter Cyndi is an RN in the ER at , so I spoke with Cyndi who provided history of c/o increase
b/l LE edema, and SOB at home. 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
Past Medical History
Past Medical History: Other (as above)
Past Surgical History: Orthopedic (pelvic fracture 06/2023 )
Social History
Tobacco: Non-Smoker
Personal: Single
Living: Alone (with private aides)
Family History
Family History: Reviewed & Not Pertinent (per daughter Cyndi)
Allergies / Home Medications
Allergy/AdvReac Type Severity Reaction Status Date / Time
Iodinated Contrast Media Allergy Mild Unknown Verified 07/06/23 18:26
�Medication �Instructions �Recorded �Confirmed �Type
albuterol sulfate 90 mcg/actuation 2 puff inhalation R Q4HPRN PRN 07/06/23 02/22/24 History
aerosol inhaler sob/wheezing
amlodipine 5 mg tablet 5 mg PO DAILY Blood Pressure 07/06/23 02/22/24 History
atorvastatin 20 mg tablet 20 mg PO DAILY High Cholesterol 07/06/23 02/22/24 History
cholecalciferol (vitamin D3) 50 50 mcg PO DAILY Supplement 07/06/23 02/22/24 History
mcg (2,000 unit) capsule
escitalopram oxalate 10 mg tablet 10 mg PO HS taken w/ 5mg = 15mg 07/06/23 02/22/24 History
montelukast 10 mg tablet 10 mg PO HS asthma/allergies 07/06/23 02/22/24 History
aspirin 81 mg chewable tablet 81 mg PO DAILY #0 tabs 07/10/23 02/22/24 Rx
(Children's Aspirin)
cyanocobalamin (vitamin B-12) 1,000 mcg PO DAILY #0 tabs 07/10/23 02/22/24 Rx
1,000 mcg tablet
ferrous gluconate 324 mg (37.5 mg 324 mg PO DAILY #1 tab 07/10/23 02/22/24 Rx
iron) tablet
sennosides 8.6 mg-docusate sodium 1 tab PO BIDPRN PRN constipation 07/10/23 02/22/24 Rx
50 mg tablet (Stool #0 tabs
Softener-Stimulant Laxative)
acetaminophen 500 mg tablet 1,000 mg PO TIDPRN PRN mild pain 02/22/24 02/22/24 History
(Tylenol Extra Strength)
escitalopram oxalate 5 mg tablet 5 mg PO HS taken w/ 10mg = 15mg 02/22/24 02/22/24 History
Review of Systems
-
Unable to obtain full review of systems at this time due to: Dementia
History Source: Family (lincoln Hanna RN works in ER at )
Physical Exam
Vital Signs
Temp Pulse Resp BP Pulse Ox
98.8 F 69 17 137/66 96
02/23/24 12:31 02/23/24 12:31 02/23/24 12:31 02/23/24 12:31 02/23/24 12:31
Lab Results
02/23/24 06:18
02/23/24 06:18
Troponin I < 0.012 ng/ml 02/22/24 18:11
Ptr-J-Aunkzvkabry Pept 506 pg/ml 02/22/24 18:11
Physical Exam
General: Well Developed and Well Nourished
HEENT: Normocephalic and Anicteric
Respiratory: Clear and Non Labored Respirations
Cardiac: S1/S2, Regular Rhythm, Murmur (3/6 TANGELA) and Peripheral Edema (mild b/l LE)
Breast: Deferred by me
GI: Soft, Non Distended and Normal Bowel Sounds
Rectal: Deferred by Provider
Musculoskeletal: No Clubbing and No Cyanosis
Skin: Warm and Dry
Neuro: Awake, Alert and Other (not oriented x 3)
Psych: Calm
Impression / Plan
-
Aortic stenosis - severe on echo.
- peak/mean gradients 72/44mmHg with normal LVEF.
- she is unable to provide adequate history of symptoms due to her dementia, possibly symptomatic from .
- spoke with lincoln Hanna RN in ER at .
Dementia - chronic.
- slightly worse than baseline due to unfamiliar surroundings.
- head CT.
CVA - chronic lacunar infarct.
- head CT today.
HFpEF - EF 60-65%, acute.
- diuresis with improvement, continue.
- daily weights, I&Os.
HTN - stable on meds, continue.
Data Reviewed
-
EKG: Tracing Personally Visualized and interpreted (NSR 67 bpm, LVH)
Medical Tests (Nuc Med, Echo etc): Report Reviewed by me (echo )
Labs: Labs Reviewed by me
Old Records: Reviewed
[2024-02-23] MEDS: LOVENOX 40 MG SC (19:00)
[2024-02-23] MEDS: LEXAPRO 10 MG PO (22:09)
[2024-02-23] MEDS: LEXAPRO 5 MG PO (22:09)
[2024-02-23] MEDS: SINGULAIR 10 MG PO (22:09)
[2024-02-24 03:48] VITALS: BP 144/76
[2024-02-24 05:56] LABS: % Basophils 0.9 % (0-2); % Eosinophils 2.5 % (0-6); % Immature Granulocytes 0.2 % (0-0.5); % Lymphocytes 32.7 % (20.5-51.1); % Monocytes 9.4 % (1.7-9.3); % Neutrophils 54.3 % (42.2-75.2); Absolute Basophils 0.1 10^3/uL (0-0.2); Absolute Eosinophils 0.1 10^3/uL (0-0.7); Absolute Lymphocytes 1.8 10^3/uL (1.2-3.4); Absolute Monocytes 0.5 10^3/uL (0.1-0.6); Hematocrit 35.2 % (37.0-47.0); Hemoglobin 11.3 g/dL (12.0-16.0); Mean Corp Hgb Conc. 32.1 g/dL (33.0-37.0); Mean Corpuscular Hgb 30.8 pg (27.0-31.0); Mean Corpuscular Volume 95.9 fL (81.0-99.0); Mean Platelet Volume 9.7 fL (7.4-10.4); Nucleated Red Blood Cells % 0 %; Platelet Count 279 10^3/uL (130-400); Red Blood Cell Count 3.67 10^6/uL (4.20-5.40); Red Cell Dist. Width 13.1 % (11.5-14.5); White Blood Cell Count 5.6 10^3/uL (4.8-10.8)
[2024-02-24 06:00] VITALS: BMI 21.2
[2024-02-24 06:25] LABS: ALT (SGPT) 13 U/L (0-35); AST (SGOT) 21 U/L (14-36); Albumin 3.4 g/dl (3.5-5.0); Alkaline Phosphatase 72 U/L (38-126); Blood Urea Nitrogen 24 mg/dl (7-17); Calcium 8.7 mg/dl (8.4-10.2); Carbon Dioxide 34 mmol/L (22-30); Chloride 103 mmol/L (98-107); Estimated Creatinine Clearance 70 ml/min; Glucose 102 mg/dl (70-99); Potassium 3.4 mmol/L (3.5-5.1); Sodium 143 mmol/L (135-145); Total Bilirubin 0.7 mg/dl (0.2-1.3); Total Protein 5.7 g/dl (6.3-8.2); eGFR > 60.00
[2024-02-24 07:40] VITALS: BP 149/68
[2024-02-24] MEDS: LIPITOR 20 MG PO (10:02)
[2024-02-24] MEDS: VITAMIN B-12 1000 MCG PO (10:02)
[2024-02-24] MEDS: LOW STRENGTH ASPIRIN 81 MG PO (10:02)
[2024-02-24] MEDS: NORVASC 5 MG PO (10:03)
[2024-02-24] MEDS: FEOSOL 325 MG PO (10:03)
[2024-02-24] MEDS: VITAMIN D3 (cholecalciferol) 50 MCG PO (10:03)
[2024-02-24] MEDS: LASIX 40 MG IV (10:03)
[2024-02-24] MEDS: KCL 40 MEQ PO ×2 (10:10→14:14)
[2024-02-24 11:10] VITALS: BP 150/76
--- NOTE | 2024-02-24 12:44 | W.PN.HOSP.TC ---
Today's Communication/Plan
-
Assessment / Plan
Assessment / Plan
Physical Exam
NAD, resting comfortably in bed
Scleral anicteric
Moist mucous membranes
No JVD
CTA bilateral
Normal S1-S2 TANGELA at RUSB 04/25
Soft nontender nondistended bowel sounds active
Mild peripheral pitting edema
Moves extremities spontaneously
AAO x1 (name)
Acute hfpef, ef 6-65%, nyha class III-IV, Severe with gradient of 0.7cm - symtpomatic
-due to age, dementia, performance status not a candidate for tavr
-medically manage with diuretics
-outpatient palliative eval
Dementia, likely vscular
-Provide delirium precautions
-asa and statin
b12 def
-continue b12 supplementation
HypoK
-replete prn
b/l le erythema likely related to venostasis rather then cellulitis
-agree with no atb indicated a tthis itme as b/l cellulitis is very rare, no white count and afebrile
Anticipated Discharge: 24 - 48 hours
Subjective/Interval History
-
Date of Service: February 24, 2024
seen and examined. pleasantly demented. no avernight events reported
Objective Data
-
Labs:
Laboratory Results
02/24/24
05:23
WBC 5.6
Hgb 11.3 L
Hct 35.2 L
Plt Count 279
Sodium 143
Potassium 3.4 L
Chloride 103
Carbon Dioxide 34 H
BUN 24 H
Creatinine 0.5 L
Glucose 102 H
Calcium 8.7
Total Bilirubin 0.7
AST 21
ALT 13
Alkaline Phosphatase 72
Vital Signs:
Vital Signs
Temp Pulse Resp BP Pulse Ox
98.6 F 73 16 149/68 96
02/24/24 07:40 02/24/24 07:40 02/24/24 07:40 02/24/24 07:40 02/24/24 07:40
I&O
02/23/24 02/24/24 02/25/24
06:59 06:59 06:59
Output Total 2099 / 2099
Balance -2099 / -2099
--- NOTE | 2024-02-24 13:46 | W.PN.CD ---
Today's Communication / Plan
-
-IV Lasix today but can be switched to p.o. tomorrow.
Impression / Plan
-
Aortic stenosis - severe on echo.
- peak/mean gradients 72/44mmHg with normal LVEF.
- she is unable to provide adequate history of symptoms due to her dementia, possibly symptomatic from .
- daughter Cyndi is RN in ER at .
- Plan is to medically manage at this time.
-Diuresis as tolerated. Can switch to Lasix p.o. tomorrow.
Dementia - chronic.
- slightly worse than baseline due to unfamiliar surroundings.
- head CT.
CVA - chronic lacunar infarct.
- head CT today.
HFpEF - EF 60-65%, acute.
- diuresis with improvement, continue.
- daily weights, I&Os.
HTN - stable on meds, continue.
Physical Exam
Vital Signs/Labs
Vital Signs
Temp Pulse Resp BP Pulse Ox
98.2 F 74 16 150/76 91
02/24/24 11:10 02/24/24 11:10 02/24/24 11:10 02/24/24 11:10 02/24/24 11:10
02/23/24 02/24/24 02/25/24
06:59 06:59 06:59
Actual Weight 61.371 kg 59.421 kg
02/24/24 05:23
02/24/24 05:23
Triglycerides 43 mg/dl (10-149) 02/23/24 06:18
LDL Cholesterol, Calc 71 mg/dl 02/23/24 06:18
VLDL Cholesterol, Calc 8 mg/dl (0-30) 02/23/24 06:18
HDL Cholesterol 94 mg/dl 02/23/24 06:18
02/22/24
18:11
Vmj-S-Midviwjmros Pept 506
LAB Results
02/22/24
18:11
Troponin I < 0.012
Physical Exam
Constitutional: No acute distress and Comfortable
EENT: Anicteric and Moist mucous membranes
Cardiovascular: Rhythm & rate is regular, Pedal edema is absent, JVD pressure is normal and Systolic murmur present
Respiratory: Respiratory effort normal, Rhonchi Absent and Labored respirations
GI: Soft and Normal bowel sounds
Neuro/Psych: Alert
Data Reviewed
-
Date of Service: February 24, 2024
Medical Decision Making: Reviewed Test Results and Independent Historian Assessment
EKG: Tracing Personally Visualized and interpreted
Echo: Tracing Personally Visualized and interpreted and Report Reviewed by me
Labs: Labs Reviewed by me
Old Records: Reviewed
[2024-02-24 15:15] VITALS: BP 142/64
[2024-02-24] MEDS: LOVENOX 40 MG SC (16:54)
[2024-02-24] MEDS: TYLENOL 650 MG PO (16:56)
[2024-02-24 19:13] VITALS: BP 122/63
[2024-02-24] MEDS: LEXAPRO 5 MG PO (19:51)
[2024-02-24] MEDS: LEXAPRO 10 MG PO (19:51)
[2024-02-24] MEDS: SINGULAIR 10 MG PO (19:52)
[2024-02-24 23:19] VITALS: BP 118/68
[2024-02-25 04:24] VITALS: BP 141/69
[2024-02-25 05:26] VITALS: BMI 20.2
[2024-02-25 05:52] LABS: % Basophils 0.5 % (0-2); % Eosinophils 1.6 % (0-6); % Immature Granulocytes 0.3 % (0-0.5); % Lymphocytes 24.9 % (20.5-51.1); % Monocytes 9.3 % (1.7-9.3); % Neutrophils 63.4 % (42.2-75.2); Absolute Eosinophils 0.1 10^3/uL (0-0.7); Absolute Lymphocytes 1.9 10^3/uL (1.2-3.4); Absolute Monocytes 0.7 10^3/uL (0.1-0.6); Absolute Neutrophils 4.8 10^3/uL (1.4-6.5); Hematocrit 35.3 % (37.0-47.0); Hemoglobin 11.5 g/dL (12.0-16.0); Mean Corp Hgb Conc. 32.6 g/dL (33.0-37.0); Mean Corpuscular Hgb 31.5 pg (27.0-31.0); Mean Corpuscular Volume 96.7 fL (81.0-99.0); Mean Platelet Volume 10.3 fL (7.4-10.4); Nucleated Red Blood Cells % 0 %; Platelet Count 298 10^3/uL (130-400); Red Blood Cell Count 3.65 10^6/uL (4.20-5.40); Red Cell Dist. Width 12.9 % (11.5-14.5); White Blood Cell Count 7.6 10^3/uL (4.8-10.8)
[2024-02-25 05:57] LABS: ALT (SGPT) 14 U/L (0-35); AST (SGOT) 21 U/L (14-36); Albumin 3.5 g/dl (3.5-5.0); Alkaline Phosphatase 73 U/L (38-126); Blood Urea Nitrogen 30 mg/dl (7-17); Calcium 8.8 mg/dl (8.4-10.2); Carbon Dioxide 34 mmol/L (22-30); Chloride 101 mmol/L (98-107); Estimated Creatinine Clearance 67 ml/min; Glucose 101 mg/dl (70-99); Potassium 3.9 mmol/L (3.5-5.1); Sodium 141 mmol/L (135-145); Total Bilirubin 0.6 mg/dl (0.2-1.3); Total Protein 5.9 g/dl (6.3-8.2); eGFR > 60.00
[2024-02-25 07:25] VITALS: BP 156/72
[2024-02-25] MEDS: LIPITOR 20 MG PO (09:17)
[2024-02-25] MEDS: NORVASC 5 MG PO (09:17)
[2024-02-25] MEDS: VITAMIN D3 (cholecalciferol) 50 MCG PO (09:17)
[2024-02-25] MEDS: LOW STRENGTH ASPIRIN 81 MG PO (09:17)
[2024-02-25] MEDS: VITAMIN B-12 1000 MCG PO (09:17)
[2024-02-25] MEDS: FEOSOL 325 MG PO (09:18)
[2024-02-25] MEDS: FLUSH (NSS) 2 FLUSH IV ×2 (10:16→12:30)
[2024-02-25] MEDS: LASIX 40 MG IV (10:16)
[2024-02-25 11:10] VITALS: BP 153/76
--- NOTE | 2024-02-25 11:47 | W.PN.CD ---
Today's Communication / Plan
-
-IV Lasix can be switched to p.o.
-PT OT and disposition as recommended
Impression / Plan
-
Aortic stenosis - severe on echo.
- peak/mean gradients 72/44mmHg with normal LVEF.
- she is unable to provide adequate history of symptoms due to her dementia, possibly symptomatic from .
- daughter Cyndi is RN in ER at .
- Plan is to medically manage at this time.
- Diuresed. Close to euvolemic now. Can switch to Lasix p.o. today
Dementia - chronic.
- slightly worse than baseline due to unfamiliar surroundings.
- head CT.
CVA - chronic lacunar infarct.
- head CT today.
HFpEF - EF 60-65%, acute.
- diuresis with improvement, continue.
- daily weights, I&Os.
HTN - stable on meds, continue.
Physical Exam
Vital Signs/Labs
Vital Signs
Temp Pulse Resp BP Pulse Ox
98.0 F 72 16 156/72 93
02/25/24 07:25 02/25/24 07:25 02/25/24 07:25 02/25/24 07:25 02/25/24 07:25
02/24/24 02/25/24 02/26/24
06:59 06:59 06:59
Actual Weight 59.421 kg 56.869 kg
02/25/24 04:20
02/25/24 04:20
Triglycerides 43 mg/dl (10-149) 02/23/24 06:18
LDL Cholesterol, Calc 71 mg/dl 02/23/24 06:18
VLDL Cholesterol, Calc 8 mg/dl (0-30) 02/23/24 06:18
HDL Cholesterol 94 mg/dl 02/23/24 06:18
02/22/24
18:11
Bvu-B-Fuoepgaazio Pept 506
LAB Results
02/22/24
18:11
Troponin I < 0.012
Physical Exam
Constitutional: No acute distress and Comfortable
EENT: Anicteric and Moist mucous membranes
Cardiovascular: Rhythm & rate is regular, Pedal edema is absent and JVD pressure is normal
Respiratory: Respiratory effort normal, Lungs clear to auscul. and Crackles Absent
GI: Soft, Non tender and Normal bowel sounds
Neuro/Psych: Alert and Oriented
Data Reviewed
-
Date of Service: February 25, 2024
EKG: Tracing Personally Visualized and interpreted
Echo: Report Reviewed by me
Labs: Labs Reviewed by me
Old Records: Reviewed
[2024-02-25] MEDS: STERILE WATER FOR INJECTION 10 ML IV (12:29)
[2024-02-25] MEDS: ROCEPHIN 1000 MG IV (12:29)
--- NOTE | 2024-02-25 12:35 | W.PN.HOSP.TC ---
Today's Communication/Plan
-
Assessment / Plan
Assessment / Plan
Physical Exam
NAD, resting comfortably in bed
Scleral anicteric
Moist mucous membranes
No JVD
CTA bilateral
Normal S1-S2 TANGELA at R[facility] 04/25
Soft nontender nondistended bowel sounds active
Mild peripheral pitting edema
Moves extremities spontaneously
AAO x1 (name)
Acute hfpef, ef 6-65%, nyha class III-IV, Severe with gradient of 0.7cm - symtpomatic
-due to age, dementia, performance status not a candidate for tavr
-medically manage with diuretics, transitioned to PO by Cards today
-outpatient palliative eval
EColi UTI with >100,000
-CTX x3days started
Dementia, likely vscular
-Provide delirium precautions
-asa and statin
b12 def
-continue b12 supplementation
HypoK
-replete prn
b/l le erythema likely related to venostasis rather then cellulitis
-agree with no atb indicated a tthis itme as b/l cellulitis is very rare, no white count and afebrile
CM to work on HH and outpatient pallitaitve care. Sarah able to dc tomorrow
Anticipated Discharge: 24 - 48 hours
Subjective/Interval History
-
Date of Service: February 25, 2024
seen an dexamined
unchanged in mental status
still pleasently demented
Objective Data
-
Labs:
Laboratory Results
02/25/24
04:20
WBC 7.6
Hgb 11.5 L
Hct 35.3 L
Plt Count 298
Sodium 141
Potassium 3.9
Chloride 101
Carbon Dioxide 34 H
BUN 30 H
Creatinine 0.5 L
Glucose 101 H
Calcium 8.8
Total Bilirubin 0.6
AST 21
ALT 14
Alkaline Phosphatase 73
Vital Signs:
Vital Signs
Temp Pulse Resp BP Pulse Ox
98.0 F 72 16 156/72 93
02/25/24 07:25 02/25/24 07:25 02/25/24 07:25 02/25/24 07:25 02/25/24 07:25
I&O
02/24/24 02/25/24 02/26/24
06:59 06:59 06:59
Intake Total 240 / 240
Balance 240 / 240
--- NOTE | 2024-02-25 16:23 | CM ---
Met with pt at bedside to complete initial assessment
Pt confused, unable to answer questions
Called daughter to complete assessment - LM requesting return call
[2024-02-25] MEDS: LOVENOX 40 MG SC (17:00)
[2024-02-25 17:30] VITALS: BP 136/71
--- NOTE | 2024-02-25 18:31 | PTCARENOTE ---
Please call pts' daughter soheila when pt discharge to home.
[2024-02-25 19:21] VITALS: BP 122/58
[2024-02-25] MEDS: COMPAZINE 10 MG IV (20:32)
[2024-02-25] MEDS: LEXAPRO 5 MG PO (21:51)
[2024-02-25] MEDS: LEXAPRO 10 MG PO (21:51)
[2024-02-25] MEDS: SINGULAIR 10 MG PO (21:51)
[2024-02-25 23:29] VITALS: BP 131/59
[2024-02-26 07:20] VITALS: BP 143/69
[2024-02-26] MEDS: LOW STRENGTH ASPIRIN 81 MG PO (08:08)
[2024-02-26] MEDS: LASIX 40 MG PO (08:08)
[2024-02-26] MEDS: VITAMIN D3 (cholecalciferol) 50 MCG PO (08:08)
[2024-02-26] MEDS: VITAMIN B-12 1000 MCG PO (08:08)
[2024-02-26] MEDS: NORVASC 5 MG PO (08:08)
[2024-02-26] MEDS: LIPITOR 20 MG PO (08:09)
[2024-02-26] MEDS: FEOSOL 325 MG PO (08:09)
[2024-02-26] MEDS: STERILE WATER FOR INJECTION 10 ML IV (11:23)
[2024-02-26] MEDS: ROCEPHIN 1000 MG IV (11:23)
[2024-02-26 12:05] VITALS: BP 146/69; PULSE 74; O2SAT 95
--- NOTE | 2024-02-26 12:54 | CM ---
Reviewed the chart notes and spoke's daughter Cyndi via telephone. IMM reviewed. The patient resides alone in a split level home with one step to enter with bilateral rails. The patient has a rolling walker, rollator, shower chair, and raised
toilet with rails. The patient has had [facility] in past and been to [facility] and [facility]. The patient's pharmacy of choice is the [facility]. Patient's daughter interested in VN and Palliative Care. Discussed area agencies and
she selected . Referrals to be placed via [facility]. The patient has a caregiver daily for three hours. CM continues to be available to patient/family and is monitoring medical plan for needs at discharge.
Plan: Discharge to home with VN services and Palliative Care. Patient's daughter will provide transportation.
[2024-02-26 13:00] VITALS: BP 95/54; BP 99/57; PULSE 90; PULSE 97
[2024-02-26 15:01] VITALS: BP 117/57
--- NOTE | 2024-02-26 16:43 | W.DS.TRANS ---
DC Summary - Family Nurse
-
Discharge Instructions:
Discharge Diagnosis/Procedures Severe aortic stenosis
Diet 2 Gram Sodium
Instructions:
Stand-Alone Forms:
Changes to Home Medications: Yes
Discharge Medications:
DC Medications w/original date entered in [employer]
albuterol sulfate 90 mcg/actuation aerosol inhaler 2 puff inhalation R Q4HPRN PRN sob/wheezing 07/06/23
amlodipine 5 mg tablet 5 mg PO DAILY Blood Pressure 07/06/23
atorvastatin 20 mg tablet 20 mg PO DAILY High Cholesterol 07/06/23
cholecalciferol (vitamin D3) 50 mcg (2,000 unit) capsule 50 mcg PO DAILY Supplement 07/06/23
escitalopram oxalate 10 mg tablet 10 mg PO HS taken w/ 5mg = 15mg 07/06/23
montelukast 10 mg tablet 10 mg PO HS asthma/allergies 07/06/23
aspirin 81 mg chewable tablet (Children's Aspirin) 81 mg PO DAILY #0 tabs 07/10/23
cyanocobalamin (vitamin B-12) 1,000 mcg tablet 1,000 mcg PO DAILY #0 tabs 07/10/23
ferrous gluconate 324 mg (37.5 mg iron) tablet 324 mg PO DAILY #1 tab 07/10/23
sennosides 8.6 mg-docusate sodium 50 mg tablet (Stool Softener-Stimulant Laxative) 1 tab PO BIDPRN PRN constipation #0 tabs 07/10/23
acetaminophen 500 mg tablet (Tylenol Extra Strength) 1,000 mg PO TIDPRN PRN mild pain 02/22/24
escitalopram oxalate 5 mg tablet 5 mg PO HS taken w/ 10mg = 15mg 02/22/24
furosemide 40 mg tablet 40 mg PO DAILY #30 tabs 02/26/24
potassium chloride 20 mEq tablet,extended release(part/cryst) 20 meq PO DAILY #30 tabs 02/26/24
Home Medication Changes
Lasix initiated along with KCL supplement
Pending Results: No
[2024-02-26] MEDS: LOVENOX SC (16:54)
== END 2024-02-26 18:03 | disposition home health service (06) | DRG 306 ==
LOC: 2 NORTH 15:43
PROVIDERS: Clinical Nurse Specialist Family Health; Physician Assistant Medical; ADMITTING PHYSICIAN Internal Medicine; ATTENDING PHYSICIAN Internal Medicine; CONSULT PHYSICIAN Internal Medicine; EMERGENCY PHYSICIAN Emergency Medicine; FAMILY PHYSICIAN Family Medicine
DX: I35.0 Nonrheumatic aortic (valve) stenosis (principal); I50.31 Acute diastolic (congestive) heart failure; F01.B3 Vascular dementia, moderate, with mood disturbance; F01.B4 Vascular dementia, moderate, with anxiety; N39.0 Urinary tract infection, site not specified; Z66 Do not resuscitate; I10 Essential (primary) hypertension; J45.909 Unspecified asthma, uncomplicated; E78.00 Pure hypercholesterolemia, unspecified; D63.8 Anemia in other chronic diseases classified elsewhere; K59.00 Constipation, unspecified; E87.6 Hypokalemia; T50.2X5A Adverse effect of carbonic-anhydrase inhibitors, benzothiadiazides and other diuretics, initial encounter; B96.20 Unspecified Escherichia coli [E. coli] as the cause of diseases classified elsewhere; E53.8 Deficiency of other specified B group vitamins; Z96.641 Presence of right artificial hip joint; Z91.041 Radiographic dye allergy status; Z86.73 Personal history of transient ischemic attack (TIA), and cerebral infarction without residual deficits; Z79.899 Other long term (current) drug therapy; Z79.82 Long term (current) use of aspirin
CPT/HCPCS: 70450; 80048; 80053; 80061; 81003; 81015; 82607; 83880; 84443; 84484; 85025; 87077; 87086; 87186; 93005; 93306; 93880; 93970; 96374; 96375; 97116; 97163; 97167; 97530; 97535; 99285

== ENCOUNTER 2024-02-27 19:03 | Inpatient (IN) | payer MEDICARE, OTHER, SELFPAY ==
[2024-02-27] VITALS (7 sets, daily range): BP systolic 114–155; BP diastolic 57–74; BMI 21.4
--- NOTE | 2024-02-27 13:32 | ED.GENMED ---
History of Present Illness
<Laurie Hampton PA-C - Last Filed: 02/28/24 12:36>
General
Chief Complaint: Fall
Source: patient
Exam Limitations: dementia
Time Seen by Provider: 02/27/24 13:19
Nursing documentation reviewed up to this point in time: agreed with
History of Present Illness
History of Present Illness:
Patient is a 78 year old female presenting via EMS after unwitnessed fall. Patient does have a history of dementia and is unable to contribute much to history although she does endorse right shoulder pain.
Upon speaking with patient's daughter it seems that patient was discharged from [facility] yesterday after a few days stay for newly diagnosed aortic stenosis. Patient's daughter dropped her off at home where patient lives independently
although she does have caregivers that come by. When caregivers arrive this morning�patient was found on the ground although alert. It is unknown how patient ended up on the ground and how long she was on the ground.
Patient denies any headache, neck pain, chest pain, shortness of breath, abdominal pain.
Past History
<Laurie Hampton PA-C - Last Filed: 02/28/24 12:36>
Past History
ED Past Medical History: Asthma, HTN, Hypercholesterolemia and Other (Dementia, UTI, Pelvic fracture from Trauma, anxiety depression)
ED Past Surgical History: Cholecystectomy and Orthopedic (Right hip replacement, Bilateral arm pins, Back surgery, )
Social History
Tobacco: Non-smoker
Alcohol: Occasional
Personal:
Living: with family
Review of Systems
<JEANETTE Romano Last Filed: 02/28/24 12:36>
Review of Systems
Allergies reviewed?: Yes
All Other Systems: ROS reviewed and negative except as documented in HPI and ROS
Phy Exam
<Laurie Hampton PA-C - Last Filed: 02/28/24 12:36>
Physical Exam
Physical Exam:
GENERAL: No acute distress
HEENT: atraumatic, extraocular muscles intact, no signs of entrapment, dentition intact, no other obvious trauma
NECK: no midline tenderness, normal range of motion, no other obvious trauma
BACK: no midline tenderness, no other obvious trauma,
CHEST: no tenderness, no flail segment, no subcutaneous emphysema, no other obvious trauma
LUNGS: clear to auscultation bilaterally
CARDIOVASCULAR: regular rate and rhythm
ABDOMEN: soft, non-tender, no masses, no other obvious trauma
PELVIS: stable, no obvious injury
EXTREMITIES: Notable edema and deformity to right shoulder with limited range of motion. Full range of motion of right elbow and right wrist without any pain. Left upper extremity atraumatic and nontender with full range of motion. Mild pain with
external rotation of right hip and focal tenderness to palpation along right inguinal crease. Left lower extremity atraumatic and with full range of motion. Palpable distal pulses in bilateral upper and lower extremities. Sensation fully intact
NEUROLOGIC: awake, alert x 1 to person, not place or time, no focal deficits
Course
<Laurie Hampton PA-C - Last Filed: 02/28/24 12:36>
Orders/Labs/Results
Orders:
Orders
02/27/24 Breakfast
Cholesterol Lowering
At Your Request: Full Participation
Does patient need a safe tray?: No
Cholesterol Lowering: Sodium, 2 Gram
02/27/24 13:18
Shoulder, Right 2 Views [CR Shoulder - Right Min 2 View] Urgent
Comment:
Reason For Exam: injury
02/27/24 13:23
CBC/With Diff [Complete Blood Count/With Diff] Urgent
02/27/24 13:26
CT Cervical Spine W/o Iv Contr Urgent
Comment:
Reason For Exam: fall
CT Head W/o Iv Contrast Urgent
Comment:
Reason For Exam: fall
Hip, Right 2-3 Views [CR Hip - RT w/wo Pel 2-3 Vw*] Urgent
Comment:
Reason For Exam: injury
Include a pelvis x-ray?: Yes
02/27/24 13:31
Electrocardiogram (*1) Urgent
Reason for Study: Other
Other Reason for Exam: unwitnessed fall
EKG- Treatment ONCE
02/27/24 13:32
Add On- LAB Urgent
Tests Added?: creatine kinase
Acetaminophen [Tylenol] 650 mg PO NOW STA
02/27/24 15:35
Add On- LAB Urgent
Tests Added?: CK
02/27/24 15:56
Urinalysis Reflex To Culture Urgent
Date Specimen was Collected: 02/27/24
Time Specimen was Collected: 15:52
Urine Microscopic Reflex Cult Urgent
Urine Culture Urgent
DIANA Source: U
Specimen Description:
Date Specimen was Collected: 02/27/24
Time Specimen was Collected: 15:52
02/27/24 15:59
Sling Right-Treatment ONCE
02/27/24 16:20
Straight cath- Treatment ONCE
02/27/24 16:29
Comprehensive Metabolic Panel Routine
Creatine Phosphokinase Routine
Comment: ADDED ON
02/27/24 17:39
CefTRIAXone [Rocephin] 1,000 mg IV NOW STA
02/27/24 18:05
Abdomen/Pelvis wo Contrast CT [CT Abd/pelvis Wo Iv Cont] Routine
Comment:
Reason For Exam: abdominal pain
02/27/24 18:06
Admit/Transfer Patient As Directed
Co-Sign Provider:
Level of Care: Inpatient admission
Assign to:: Medical/Surgical
Physician / Group: pablo
Diagnosis: UTI
Reason for Hospitalization: UTi
right proximal humerus fracture
Expected length of stay greater than two midnights?: Yes
ELOS- Estimated Length of Stay in days: 3
I certify the patient meets the requirements for IP care: Yes
PRN Pain Medication Management As Directed
May give lesser potent ordered pain med per pt: Yes
preference::
Protocol:: Medication orders for pain may be administered in a
manner that supports deferring to patient preference
when the pt is:
- Requesting an ordered lesser potent pain medication.
Least to most potent pain medications are defined
as: acetaminophen < NSAID < tramadol < opioids
(morphine, oxycodone, hydromorphone).
- Requesting a lesser dose of the same medication IF
ORDERED.
- Requesting a less intrusive route of administration
if both routes are prescribed by the provider (PO <
IV).
02/27/24 18:08
Code Status As Directed
Resuscitation Status: Full Code
02/27/24 18:38
Blood Culture Stat
DIANA Source: Blood/Venous
Specimen Description:
02/27/24 18:53
COVID-19 Antigen Stat
Source: Nasal Swab
Influenza A+B Rapid Molecular Stat
DIANA Source: Nasal Swab
Specimen Description:
02/27/24 20:01
Acetaminophen [Tylenol] 650 mg PO Q4HPRN PRN
Albuterol [ProAIR HFA INHALER] 2 puff INH R Q4HPRN PRN
Bisacodyl [Dulcolax] 10 mg RECTAL [id number] PRN
Docusate W/Senna [Senokot-S] 1 tablet PO BIDPRN PRN
Polyethylene Glycol Powder [Miralax] 17 grams PO DAILYPRN PRN
02/27/24 20:01
ORTHOPEDIC CONSULT Routine
Consulting Provider: Peter Banks
Was physician already notified: Yes
Activity As Directed
Activity Level: As Tolerated
Pneumatic Compression Sleeves As Directed
Type: Knee high
Vital Signs As Directed
Frequency: Per unit guidelines
DX Deep Vein Thrombosis Video Routine
02/27/24 22:00
Escitalopram Oxalate [Lexapro] 10 mg PO HS
Escitalopram Oxalate [Lexapro] 5 mg PO HS
Montelukast Sodium [Singulair] 10 mg PO HS
02/27/24 22:31
Blood Culture Stat
DIANA Source: Blood/Venous
Specimen Description:
02/28/24 06:00
Occupational Therapy Consult [Ot Eval And Treat] IN AM
Physical Therapy Consult [Pt Eval And Treat] IN AM
Activity Level: As Tolerated
02/28/24 07:15
Basic Metabolic Panel IN AM
Complete Blood Count/No Diff IN AM
02/28/24 08:00
Amlodipine [Norvasc] 5 mg PO DAILY
Aspirin Chewable [Low Strength Aspirin] 81 mg PO DAILY
Atorvastatin [Lipitor] 20 mg PO DAILY
Cholecalciferol (Vitamin D3) [VITAMIN D3 (cholecalciferol)] 50 mcg PO DAILY
Ferrous Sulfate [Feosol] 325 mg PO DAILY
Furosemide [Lasix] 40 mg PO DAILY
Potassium Chloride [KCl] 20 meq PO DAILY
02/28/24 18:00
CefTRIAXone [Rocephin] 1,000 mg IV Q24H
02/29/24 06:00
Basic Metabolic Panel IN AM
Complete Blood Count/No Diff IN AM
03/01/24 06:00
Basic Metabolic Panel IN AM
Complete Blood Count/No Diff IN AM
03/02/24 06:00
Basic Metabolic Panel IN AM
Complete Blood Count/No Diff IN AM
Abnormal Lab Results
02/27/24 02/27/24 02/27/24
13:23 15:56 16:29
WBC 21.7 H 10^3/uL
(4.8-10.8)
RBC 3.86 L 10^6/uL
(4.20-5.40)
MCH 31.1 H pg
(27.0-31.0)
MCHC 32.4 L g/dL
(33.0-37.0)
Abs Immat Gran (auto) 0.2 H 10^3/uL
(0-0.05)
Absolute Neuts (auto) 19.1 H 10^3/uL
(1.4-6.5)
Absolute Lymphs (auto) 0.9 L 10^3/uL
(1.2-3.4)
Absolute Monos (auto) 1.4 H 10^3/uL
(0.1-0.6)
Immature Gran % 0.7 H %
(0-0.5)
Neutrophils % 88.3 H %
(42.2-75.2)
Lymphocytes % 4.3 L %
(20.5-51.1)
Chloride 93 L mmol/L
(98-107)
Carbon Dioxide 35 H mmol/L
(22-30)
BUN 48 H mg/dl
(7-17)
Glucose 140 H mg/dl
(70-99)
Leukocyte Esterase Rfl 1+ A
(Negative)
Urine RBC 3-6 A /HPF
(0-2)
Urine WBC (Reflex) 16-20 A /HPF
(0-5)
Urine Bacteria (Reflex) Few A
(Negative)
02/27/24 13:23
02/27/24 16:29
Vital Signs
Initial and Last Documented VS:
Initial Vital Signs
Temp Pulse Resp BP Pulse Ox
97.7 F 67 17 114/58 96
02/27/24 13:20 02/27/24 13:20 02/27/24 13:20 02/27/24 13:20 02/27/24 13:20
Last Documented Vital Signs
Temp Pulse Resp BP Pulse Ox
98.2 F 85 17 141/70 96
02/28/24 07:00 02/28/24 08:39 02/28/24 07:00 02/28/24 08:39 02/28/24 07:00
<Adelitaciro Sarabia DO - Last Filed: 02/28/24 12:09>
Orders/Labs/Results
Orders:
Orders
02/27/24 Breakfast
Cholesterol Lowering
At Your Request: Full Participation
Does patient need a safe tray?: No
Cholesterol Lowering: Sodium, 2 Gram
02/27/24 13:18
Shoulder, Right 2 Views [CR Shoulder - Right Min 2 View] Urgent
Comment:
Reason For Exam: injury
02/27/24 13:23
CBC/With Diff [Complete Blood Count/With Diff] Urgent
02/27/24 13:26
CT Cervical Spine W/o Iv Contr Urgent
Comment:
Reason For Exam: fall
CT Head W/o Iv Contrast Urgent
Comment:
Reason For Exam: fall
Hip, Right 2-3 Views [CR Hip - RT w/wo Pel 2-3 Vw*] Urgent
Comment:
Reason For Exam: injury
Include a pelvis x-ray?: Yes
02/27/24 13:31
Electrocardiogram (*1) Urgent
Reason for Study: Other
Other Reason for Exam: unwitnessed fall
EKG- Treatment ONCE
02/27/24 13:32
Add On- LAB Urgent
Tests Added?: creatine kinase
Acetaminophen [Tylenol] 650 mg PO NOW STA
02/27/24 15:35
Add On- LAB Urgent
Tests Added?: CK
02/27/24 15:56
Urinalysis Reflex To Culture Urgent
Date Specimen was Collected: 02/27/24
Time Specimen was Collected: 15:52
Urine Microscopic Reflex Cult Urgent
Urine Culture Urgent
DIANA Source: U
Specimen Description:
Date Specimen was Collected: 02/27/24
Time Specimen was Collected: 15:52
02/27/24 15:59
Sling Right-Treatment ONCE
02/27/24 16:20
Straight cath- Treatment ONCE
02/27/24 16:29
Comprehensive Metabolic Panel Routine
Creatine Phosphokinase Routine
Comment: ADDED ON
02/27/24 17:39
CefTRIAXone [Rocephin] 1,000 mg IV NOW STA
02/27/24 18:05
Abdomen/Pelvis wo Contrast CT [CT Abd/pelvis Wo Iv Cont] Routine
Comment:
Reason For Exam: abdominal pain
02/27/24 18:06
Admit/Transfer Patient As Directed
Co-Sign Provider:
Level of Care: Inpatient admission
Assign to:: Medical/Surgical
Physician / Group: pablo
Diagnosis: UTI
Reason for Hospitalization: UTi
right proximal humerus fracture
Expected length of stay greater than two midnights?: Yes
ELOS- Estimated Length of Stay in days: 3
I certify the patient meets the requirements for IP care: Yes
PRN Pain Medication Management As Directed
May give lesser potent ordered pain med per pt: Yes
preference::
Protocol:: Medication orders for pain may be administered in a
manner that supports deferring to patient preference
when the pt is:
- Requesting an ordered lesser potent pain medication.
Least to most potent pain medications are defined
as: acetaminophen < NSAID < tramadol < opioids
(morphine, oxycodone, hydromorphone).
- Requesting a lesser dose of the same medication IF
ORDERED.
- Requesting a less intrusive route of administration
if both routes are prescribed by the provider (PO <
IV).
02/27/24 18:08
Code Status As Directed
Resuscitation Status: Full Code
02/27/24 18:38
Blood Culture Stat
DIANA Source: Blood/Venous
Specimen Description:
02/27/24 18:53
COVID-19 Antigen Stat
Source: Nasal Swab
Influenza A+B Rapid Molecular Stat
DIANA Source: Nasal Swab
Specimen Description:
02/27/24 20:01
Acetaminophen [Tylenol] 650 mg PO Q4HPRN PRN
Albuterol [ProAIR HFA INHALER] 2 puff INH R Q4HPRN PRN
Bisacodyl [Dulcolax] 10 mg RECTAL [id number] PRN
Docusate W/Senna [Senokot-S] 1 tablet PO BIDPRN PRN
Polyethylene Glycol Powder [Miralax] 17 grams PO DAILYPRN PRN
02/27/24 20:01
ORTHOPEDIC CONSULT Routine
Consulting Provider: Peter Banks
Was physician already notified: Yes
Activity As Directed
Activity Level: As Tolerated
Pneumatic Compression Sleeves As Directed
Type: Knee high
Vital Signs As Directed
Frequency: Per unit guidelines
DX Deep Vein Thrombosis Video Routine
02/27/24 22:00
Escitalopram Oxalate [Lexapro] 10 mg PO HS
Escitalopram Oxalate [Lexapro] 5 mg PO HS
Montelukast Sodium [Singulair] 10 mg PO HS
02/27/24 22:31
Blood Culture Stat
DIANA Source: Blood/Venous
Specimen Description:
02/28/24 06:00
Occupational Therapy Consult [Ot Eval And Treat] IN AM
Physical Therapy Consult [Pt Eval And Treat] IN AM
Activity Level: As Tolerated
02/28/24 07:15
Basic Metabolic Panel IN AM
Complete Blood Count/No Diff IN AM
02/28/24 08:00
Amlodipine [Norvasc] 5 mg PO DAILY
Aspirin Chewable [Low Strength Aspirin] 81 mg PO DAILY
Atorvastatin [Lipitor] 20 mg PO DAILY
Cholecalciferol (Vitamin D3) [VITAMIN D3 (cholecalciferol)] 50 mcg PO DAILY
Ferrous Sulfate [Feosol] 325 mg PO DAILY
Furosemide [Lasix] 40 mg PO DAILY
Potassium Chloride [KCl] 20 meq PO DAILY
02/28/24 18:00
CefTRIAXone [Rocephin] 1,000 mg IV Q24H
02/29/24 06:00
Basic Metabolic Panel IN AM
Complete Blood Count/No Diff IN AM
03/01/24 06:00
Basic Metabolic Panel IN AM
Complete Blood Count/No Diff IN AM
03/02/24 06:00
Basic Metabolic Panel IN AM
Complete Blood Count/No Diff IN AM
Abnormal Lab Results
02/27/24 02/27/24 02/27/24
13:23 15:56 16:29
WBC 21.7 H 10^3/uL
(4.8-10.8)
RBC 3.86 L 10^6/uL
(4.20-5.40)
MCH 31.1 H pg
(27.0-31.0)
MCHC 32.4 L g/dL
(33.0-37.0)
Abs Immat Gran (auto) 0.2 H 10^3/uL
(0-0.05)
Absolute Neuts (auto) 19.1 H 10^3/uL
(1.4-6.5)
Absolute Lymphs (auto) 0.9 L 10^3/uL
(1.2-3.4)
Absolute Monos (auto) 1.4 H 10^3/uL
(0.1-0.6)
Immature Gran % 0.7 H %
(0-0.5)
Neutrophils % 88.3 H %
(42.2-75.2)
Lymphocytes % 4.3 L %
(20.5-51.1)
Chloride 93 L mmol/L
(98-107)
Carbon Dioxide 35 H mmol/L
(22-30)
BUN 48 H mg/dl
(7-17)
Glucose 140 H mg/dl
(70-99)
Leukocyte Esterase Rfl 1+ A
(Negative)
Urine RBC 3-6 A /HPF
(0-2)
Urine WBC (Reflex) 16-20 A /HPF
(0-5)
Urine Bacteria (Reflex) Few A
(Negative)
02/27/24 13:23
02/27/24 16:29
Vital Signs
Initial and Last Documented VS:
Initial Vital Signs
Temp Pulse Resp BP Pulse Ox
97.7 F 67 17 114/58 96
02/27/24 13:20 02/27/24 13:20 02/27/24 13:20 02/27/24 13:20 02/27/24 13:20
Last Documented Vital Signs
Temp Pulse Resp BP Pulse Ox
98.2 F 85 17 141/70 96
02/28/24 07:00 02/28/24 08:39 02/28/24 07:00 02/28/24 08:39 02/28/24 07:00
<Laurie Hampton PA-C - Last Filed: 02/28/24 12:36>
MDM/Problems Addressed
Differential Diagnosis Includes:
Not limited to: Shoulder fracture, shoulder dislocation, shoulder contusion, pubic rami fracture, right hip fracture, acute dehydration, rhabdomyolysis, etc.
MDM/Problems Addressed:
78 year old female presenting with right shoulder pain after unwitnessed fall. Limited history due to patient history of dementia. Stable vital signs on arrival to emergency department. On exam patient is alert and oriented x 1 which is baseline.
No evidence of head or neck trauma. Cardio/pulmonary assessment unremarkable. Obvious deformity and tenderness to right shoulder with limited ROM. Some focal tenderness at right inguinal crease with pain with ROM of right hip. EKG with NSR and no
acute ischemic changes. Given uncertain etiology of fall and time on ground - will check labs. CT head, c-spine. Xray right shoulder and right hip/pelvis.
Chronic conditions affecting care:
Dementia
Acute Exacerbation and/or Progression of Chronic Illness:
N/A
<Laurie Hampton PA-C - Last Filed: 02/28/24 12:36>
*Radiology
Radiology exam reviewed: preliminary read by ED provider and radiology read reviewed
*Pulse Oximetry
Patient hypoxic: no
*EKG
Interpreted by ED Provider?: Yes
EKG Intrepretation Date: 02/27/24
Interpretation: abnormal
Comparison EKG: changes noted
Heart Rate: 72
Rate: normal
Rhythm: sinus
Interval: long QT
Ischemia: no ischemia
*Railway Signal Operator Interpretation
Rate: normal
Interpretation: normal
Heart Rate: 68
Rhythm: sinus
*Critical Care Note
Total Time (30-74mins, 75-104mins- exclusive of procedures): Not Applicable
Data Reviewed
Review of Other/Old Records Reveals: Labs (Urine culture from 02/22- positive for E.coli)
<Laurie Hampton PA-C - Last Filed: 02/28/24 12:36>
Patient Management
Discussion with other providers: Hospitalist and Business Services Sales Representative (Orthopedics - Dr. Banks)
Escalation/DeEscalation of care consider admission/obs:
Admit for ortho consult and placement in rehab facility tomorrow pending PT/CM consult
<Laurie Hampton PA-C - Last Filed: 02/28/24 12:36>
Update Note
Update Note:
Update: Labs and imaging studies reviewed. Comminuted fracture of right proximal humerus. This was discussed with orthopedics - will place patient in shoulder sling and ortho will consult tomorrow - likely non-operative management given
comorbidities. Right hip xray, CT head and cervical spine without acute abnormalities. Leukocytosis noted - possibly stress reaction vs infectious. No current infectious symptoms or fever. Given recent positive urine culture a UA was obtained which
does show likely urine infection. Will start patient on rocephin pending urine culture. Patient will require admission for PT/CM consult tomorrow for likely rehab placement given she lives alone and is unsafe to be discharged home. Patient accepted
to hospitalist service in stable condition.
ED Attending Note
<Laurie Hampton PA-C - Last Filed: 02/28/24 12:36>
-
Portions of this chart may have been created with voice recognition software.� Occasional wrong word or��sound alike� substitutions may have occurred due to the inherent limitations of voice recognition software.
<Adelita Sarabia DO - Last Filed: 02/28/24 12:09>
ED Attending Note
Patient seen and examined by attending physician: Yes
I performed the substantive portion of visit, reviewed & personally made and approve the management plan that is documented in note by myself or AL.: Yes
I performed a history and physical exam of patient and discussed management with resident, I reviewed resident's note and agree with documented findings and plan of care.: Yes
ED Attending Note:
78-year-old female with history of dementia presenting to the emergency department after a suspected fall. Patient does have aides at home, however allegedly is alone at nighttime. Patient was found on the ground in the middle the night. Patient
had recently been admitted to the hospital, new diagnosis of aortic stenosis, discharged yesterday. Patient is complaining of right shoulder pain. She does not believe that she hit her head, however is a limited historian. She believes that she
was in a butler and missed her footing which caused her to fall. Denies numbness or tingling to her extremities. Denies chest pain or difficulty breathing. Vital signs are normal.
On exam, patient is resting comfortably, no acute distress, however obvious deformity to the right upper extremity. No additional signs of trauma to the head, no midline C-tenderness. Unremarkable cardiac and pulmonary exam. No tenderness to the
abdomen. Mild tenderness to the right hip on range of motion testing. However no obvious deformity with intact sensation, no erythema, no swelling. Given unclear details regarding fall, will screen with laboratory analysis, CT brain imaging,
x-ray of the right shoulder and the right hip.
15:30 -labs show new leukocytosis. Patient without any infectious symptoms, however reported history of UTI in the past. Vital signs otherwise stable without concern for sepsis. X-ray of the shoulder does show a humeral fracture. Orthopedics
consulted, plan for sling. CT brain and C-spine negative, x-ray of the hip negative. Pending chemistry panel and urinalysis with plan for admission, unsafe disposition home given no 24-hour care.
Discharge Plan
Departure
Patient Disposition: Admit
Date of Disposition: 02/27/24
Time of Disposition: 17:41
Presentation/result/management discussed w/ accepting MD/DO: Hospitalist
Discharge Problem:
Closed fracture of right proximal humerus, Acute UTI
Interventions
Interventions:
*Risk Screen - Suicide Last Done: 02/27/24 13:12
*General Assessment Last Done: 02/27/24 13:12
*Neglect/Abuse Screening Last Done: 02/27/24 13:12
*ED COVID-19 Vaccine History Last Done: 02/28/24 02:34
*Nursing Disposition Last Done: 02/27/24 19:56
ED-Musculoskeletal Assessment Last Done: 02/27/24 13:12
ED- Neurological Assessment Last Done: 02/27/24 13:12
ED-Skin Assessment Last Done: 02/27/24 13:12
Discharge Date and Time
Discharge Date/Time: 02/27/24 19:56
[2024-02-27 13:40] LABS: % Basophils 0.3 % (0-2); % Immature Granulocytes 0.7 % (0-0.5); % Lymphocytes 4.3 % (20.5-51.1); % Monocytes 6.4 % (1.7-9.3); % Neutrophils 88.3 % (42.2-75.2); Absolute Basophils 0.1 10^3/uL (0-0.2); Absolute Immature Granulocytes 0.2 10^3/uL (0-0.05); Absolute Lymphocytes 0.9 10^3/uL (1.2-3.4); Absolute Monocytes 1.4 10^3/uL (0.1-0.6); Absolute Neutrophils 19.1 10^3/uL (1.4-6.5); Mean Corp Hgb Conc. 32.4 g/dL (33.0-37.0); Mean Corpuscular Hgb 31.1 pg (27.0-31.0); Mean Corpuscular Volume 95.9 fL (81.0-99.0); Mean Platelet Volume 9.6 fL (7.4-10.4); Nucleated Red Blood Cells % 0 %; Platelet Count 289 10^3/uL (130-400); Red Blood Cell Count 3.86 10^6/uL (4.20-5.40); Red Cell Dist. Width 12.8 % (11.5-14.5); White Blood Cell Count 21.7 10^3/uL (4.8-10.8)
[2024-02-27] MEDS: TYLENOL 650 MG PO ×2 (14:43→20:28)
[2024-02-27 16:53] LABS: Urine Albumin Trace (Neg - Trace); Urine Bilirubin Negative (Negative); Urine Character Clear (Clear); Urine Color Yellow; Urine Glucose Negative (Negative); Urine Ketone Negative (Negative); Urine Leukocyte 1+ (Negative); Urine Nitrite Negative (Negative); Urine Occult Blood Negative (Negative); Urine Specific Gravity 1.015 (<1.030); Urine Urobilinogen Negative (Neg - 1+)
[2024-02-27 17:01] LABS: ALT (SGPT) 24 U/L (0-35); AST (SGOT) 30 U/L (14-36); Albumin 4.1 g/dl (3.5-5.0); Alkaline Phosphatase 76 U/L (38-126); Blood Urea Nitrogen 48 mg/dl (7-17); Carbon Dioxide 35 mmol/L (22-30); Chloride 93 mmol/L (98-107); Creatine Phosphokinase 71 U/L (30-135); Estimated Creatinine Clearance 60 ml/min; Glucose 140 mg/dl (70-99); Potassium 3.9 mmol/L (3.5-5.1); Sodium 135 mmol/L (135-145); Total Bilirubin 0.7 mg/dl (0.2-1.3); Total Protein 6.4 g/dl (6.3-8.2); eGFR > 60.00
[2024-02-27 17:36] LABS: Urine Bacteria Few (Negative); Urine White Cell 16-20 /HPF (0-5)
[2024-02-27] MEDS: ROCEPHIN 1000 MG IV (17:51)
--- NOTE | 2024-02-27 18:19 | HPS.HSE ---
Family Physician
-
Family Physician: Ruchi Bradley
Chief Complaint
-
R arm Fx
History of Present Illness
78yo F with PMHX of , dementia, Hx of CVA, HFpEF, HTN came after the fall at home. SHe does not remember details of the fall and is poor historian. She was managed for severe and d/kayla from DH day prior. SHe fell onto her R extended arm and
remembers the fall itself. On admission found comminuted Fx of proximal R humerus. No other complains noted
Medical History
Past Medical History
Past Medical History: Reports Other
Additional Past Medical History:
see above
Past Surgical History: Reports None
Social History
Tobacco: Non-smoker
Alcohol: Occasional
Drug: None
Family History
Family History: CAD (in mother)
Allergies / Home Medications
Allergies reflects when Allergies were last updated in [employer].
Home Medications with original date entered in [employer]
Allergy/Medication List:
Allergies
Allergy/AdvReac Type Severity Reaction Status Date / Time
Iodinated Contrast Media Allergy Mild Unknown Verified 07/06/23 18:26
Home Medications
albuterol sulfate 90 mcg/actuation aerosol inhaler 2 puff inhalation R Q4HPRN PRN sob/wheezing 07/06/23
amlodipine 5 mg tablet 5 mg PO DAILY Blood Pressure 07/06/23
atorvastatin 20 mg tablet 20 mg PO DAILY High Cholesterol 07/06/23
cholecalciferol (vitamin D3) 50 mcg (2,000 unit) capsule 50 mcg PO DAILY Supplement 07/06/23
escitalopram oxalate 10 mg tablet 10 mg PO HS taken w/ 5mg = 15mg 07/06/23
montelukast 10 mg tablet 10 mg PO HS asthma/allergies 07/06/23
aspirin 81 mg chewable tablet (Children's Aspirin) 81 mg PO DAILY #0 tabs 07/10/23
cyanocobalamin (vitamin B-12) 1,000 mcg tablet 1,000 mcg PO DAILY #0 tabs 07/10/23
ferrous gluconate 324 mg (37.5 mg iron) tablet 324 mg PO DAILY #1 tab 07/10/23
sennosides 8.6 mg-docusate sodium 50 mg tablet (Stool Softener-Stimulant Laxative) 1 tab PO BIDPRN PRN constipation #0 tabs 07/10/23
acetaminophen 500 mg tablet (Tylenol Extra Strength) 1,000 mg PO TIDPRN PRN mild pain 02/22/24
escitalopram oxalate 5 mg tablet 5 mg PO HS taken w/ 10mg = 15mg 02/22/24
furosemide 40 mg tablet 40 mg PO DAILY #30 tabs 02/26/24
potassium chloride 20 mEq tablet,extended release(part/cryst) 20 meq PO DAILY #30 tabs 02/26/24
Review of Systems
-
Unable to obtain full review of systems at this time due to: Dementia
A 12 point ROS was completed and negative except as noted: Yes
: Reports No Symptoms
Musculoskeletal: Reports Other (R arm swelling)
Physical Exam
Vital Signs
Vital Signs
Temp Pulse Resp BP Pulse Ox
97.7 F 76 19 155/70 95
02/27/24 13:20 02/27/24 17:45 02/27/24 17:45 02/27/24 17:00 02/27/24 17:00
Physical Exam
General: No Apparent Distress, Comfortable and Pain
HEENT: NormoCephalic, Anicteric and Moist mucous membranes
Respiratory: Clear; No Wheezes, Rales or Rhonchi
Cardiac: S1/S2, Regular Rhythm and Murmur (midsystolic)
GI: Soft, Non Tender and Non Distended
Genito-urinary: No costovertebral tender
Musculoskeletal: No Clubbing, No Cyanosis and No Edema
Skin: Warm and Other (petichial rash on both LE)
Neuro: Awake, Alert, Oriented and AO x 3
Psych: Calm
Laboratory Results
-
02/27/24 13:23
02/27/24 16:29
Laboratory Results
Total Bilirubin 0.7 mg/dl (0.2-1.3) 02/27/24 16:29
AST 30 U/L (14-36) 02/27/24 16:29
ALT 24 U/L (0-35) 02/27/24 16:29
Alkaline Phosphatase 76 U/L (38-126) 02/27/24 16:29
Data Reviewed
-
Lab Data: Labs Reviewed by me
Impression/Plan
-
A/P:
#Comminuted fracture of the proximal right humerus s/p fall without LOC
Ortho consult
Pain mgmt
PT/OT
Sling
#Leukocytosis
With recent bacteriuria
Hard to assess symptoms with dementia
Reasonable to treat with Rocephin pending Ucx
Bcx pending
CT abd/pelvis
#Severe
#Essential HTN
#HLD
#Hx of CVA
#Dementia, unspecified
cont home meds
#petechial rash on LE
non-blanchable
intermitent and chronic
watch
DVT ppx Lovenox
unable to reach POA on admission for code status. Full code for now as patient cannot reliably state her wishes due to dementia
I have spent at least 59min reviewing chart, test results, communication with consultants and direct patient care
[2024-02-27 19:19] LABS: COVID-19 Antigen Negative (Negative)
[2024-02-27] MEDS: SINGULAIR 10 MG PO (21:23)
[2024-02-27] MEDS: LEXAPRO 10 MG PO (21:23)
[2024-02-27] MEDS: LEXAPRO 5 MG PO (21:23)
--- NOTE | 2024-02-27 22:00 | PTCARENOTE ---
Patient recieved from ED via stretcher. Patient with sling to right arm. Neurovascular assessment to right arm intact. Patient pleasantly confused, oriened to self only. No family at bedside upon arrival to floor. Low grade temp, Tylenol given. Bed
alarm placed on bed. Call you with in reach. Care ongoing, will monitor.
[2024-02-28 07:00] VITALS: BP 141/70
[2024-02-28 07:26] LABS: Hematocrit 32.4 % (37.0-47.0); Hemoglobin 10.4 g/dL (12.0-16.0); Mean Corp Hgb Conc. 32.1 g/dL (33.0-37.0); Mean Corpuscular Volume 96.4 fL (81.0-99.0); Mean Platelet Volume 9.9 fL (7.4-10.4); Platelet Count 233 10^3/uL (130-400); Red Blood Cell Count 3.36 10^6/uL (4.20-5.40); Red Cell Dist. Width 12.9 % (11.5-14.5)
--- NOTE | 2024-02-28 08:18 | W.PN.UPDATE ---
Update Note
Progress Note Update
Patient seen on AM rounds, full consult note to follow. Right proximal humerus fracture and mildly displaced fracture of the right iliac bone of the pelvis. These can both be managed without surgical intervention. Sling to RUE. NWB to RUE. May be
WBAT to RLE. Recommend use of assistive device, such as cane, but needs to remain NWB to RUE (i.e. no platform walker). Patient would benefit from PT/OT while admitted. Pain control as needed. Plan for outpatient follow up with orthopedics.
[2024-02-28 08:29] LABS: Blood Urea Nitrogen 46 mg/dl (7-17); Calcium 8.6 mg/dl (8.4-10.2); Carbon Dioxide 34 mmol/L (22-30); Chloride 96 mmol/L (98-107); Estimated Creatinine Clearance 70 ml/min; Glucose 132 mg/dl (70-99); Potassium 3.7 mmol/L (3.5-5.1); Sodium 137 mmol/L (135-145); eGFR > 60.00
[2024-02-28] MEDS: NORVASC 5 MG PO (08:39)
[2024-02-28] MEDS: LASIX 40 MG PO (08:39)
[2024-02-28] MEDS: LOW STRENGTH ASPIRIN 81 MG PO (08:39)
[2024-02-28] MEDS: KCL 20 MEQ PO (08:39)
[2024-02-28] MEDS: FEOSOL 325 MG PO (08:39)
[2024-02-28] MEDS: VITAMIN D3 (cholecalciferol) 50 MCG PO (08:39)
[2024-02-28] MEDS: LIPITOR 20 MG PO (08:39)
--- NOTE | 2024-02-28 09:10 | CON.ORTHO ---
Consultation
-
Date/Time Consultation Requested: 02/27/2024; time unknown
Date/Time Consultation Performed: 02/28/2024; 0730
Requesting Provider: unknown
Performing Provider: Dr. Peter Banks / Daniela Treadwell PA-C
Reason for Consultation: Right proximal humerus fracture, right pelvic fracture
Consultation - Orthopedics
History
Patient was seen in tandem with Dr. Banks this morning.
Ms. Rizzo is an 78 yo F with past medical history of aortic stenosis, dementia, Hx of CVA, HFpEF, and HTN. She presented to ED after a fall at home. Patient reports this morning that she does not recall the fall. She is a poor historian secondary
to her dementia. She endorses significant pain in her right shoulder, but denies any significant pain about her right hip at present. She denies pain elsewhere this AM. She reports she lives independently, and has an aid who comes during the day.
Allergies / Home Medications
Allergy/AdvReac Type Severity Reaction Status Date / Time
Iodinated Contrast Media Allergy SEE BELOW Verified 02/27/24 20:12
�Medication �Instructions �Recorded
albuterol sulfate 90 mcg/actuation 2 puff inhalation R Q4HPRN PRN 07/06/23
aerosol inhaler sob/wheezing
amlodipine 5 mg tablet 5 mg PO DAILY Blood Pressure 07/06/23
atorvastatin 20 mg tablet 20 mg PO DAILY High Cholesterol 07/06/23
cholecalciferol (vitamin D3) 50 50 mcg PO DAILY Supplement 07/06/23
mcg (2,000 unit) capsule
escitalopram oxalate 10 mg tablet 10 mg PO HS taken w/ 5mg = 15mg 07/06/23
montelukast 10 mg tablet 10 mg PO HS asthma/allergies 07/06/23
aspirin 81 mg chewable tablet 81 mg PO DAILY #0 tabs 07/10/23
(Children's Aspirin)
cyanocobalamin (vitamin B-12) 1,000 mcg PO DAILY #0 tabs 07/10/23
1,000 mcg tablet
ferrous gluconate 324 mg (37.5 mg 324 mg PO DAILY #1 tab 07/10/23
iron) tablet
sennosides 8.6 mg-docusate sodium 1 tab PO BIDPRN PRN constipation 07/10/23
50 mg tablet (Stool #0 tabs
Softener-Stimulant Laxative)
acetaminophen 500 mg tablet 1,000 mg PO TIDPRN PRN mild pain 02/22/24
(Tylenol Extra Strength)
escitalopram oxalate 5 mg tablet 5 mg PO HS taken w/ 10mg = 15mg 02/22/24
furosemide 40 mg tablet 40 mg PO DAILY #30 tabs 02/26/24
potassium chloride 20 mEq 20 meq PO DAILY #30 tabs 02/26/24
tablet,extended release(part/cryst)
Vital Signs / Lab Results
Temp Pulse Resp BP Pulse Ox
98.2 F 85 17 141/70 96
02/28/24 07:00 02/28/24 08:39 02/28/24 07:00 02/28/24 08:39 02/28/24 07:00
02/28/24 07:15
02/28/24 07:15
XR Right Shoulder IMPRESSION:
Comminuted fracture of the proximal right humerus.
XR Right Hip IMPRESSION:
No radiographic evidence for acute fracture or dislocation.
CT Abdomen/Pelvis IMPRESSION:
Acute slightly comminuted and displaced fracture of the right iliac bone. Adjacent small intramuscular hematomas involving the right iliac uterus and gluteus musculature.
Directed exam of the right shoulder reveals effusion and ecchymosis generally about the right shoulder and upper arm. Significant tenderness to palpation about the proximal humerus. No tenderness about the elbow, wrist or hand. Shoulder ROM deferred
secondary to known fracture. Patient able to flex and extend wrist. Full ROM of fingers. Sensation intact to light touch distally. Capillary refill <2 seconds.
Directed exam of the right hip reveals no obvious erythema, ecchymosis, edema or lesions. Mild tenderness to palpation along the iliac crest. No tenderness elsewhere in the hip. Thigh soft and compressible. Negative log roll. Calf soft and
nontender. Neurovascularly intact distally.
Assessment / Plan
Right proximal humerus fracture
--Unfortunately, Sabrina sustained a comminuted fracture of her proximal humerus in her fall. The fracture remains in adequate alignment at present. Given her underlying comorbidities, and low functional demand, we will plan to proceed with
non-surgical management for the time being. Continue with immobilization in sling. Strict non-weight bearing to right upper extremity. Encouraged gentle ROM of wrist and hand.
--Pain control prn.
--Sabrina may follow up in our office in the next few weeks for repeat x-rays to check the position of her fracture.
Fracture of right iliac bone of pelvis
--Unfortunately, Sabrina also sustained a fracture of her pelvis in her fall. This appears only mildly displaced on CT scan, and is in appropriate alignment to proceed with non-surgical intervention. She may continue weight bearing as tolerated to
her right lower extremity. I would recommend use of a gait aid. Patient would likely benefit from PT/OT while admitted.
--Orthopedics will sign off for the time being. Please reach out with any additional orthopedic questions or concerns.
[2024-02-28 11:00] VITALS: BP 119/66; BP 121/65; BP 125/63; PULSE 85; PULSE 87; O2SAT 94
--- NOTE | 2024-02-28 11:32 | W.PN.HOSP.TC ---
Today's Communication/Plan
-
cont Rocephin
restart but change to Furosemide MWF since dehydration on admission
Assessment / Plan
Assessment / Plan
1yo F with PMHX of , dementia, Hx of CVA, HFpEF, HTN came after the fall at home. SHe does not remember details of the fall and is poor historian. She was managed for severe and d/kayla from DH day prior. SHe fell onto her R extended arm and
remembers the fall itself. On admission found comminuted Fx of proximal R humerus and R iliac bone, that ortho will be managed concervatively. ALso concern for UTI with fevers
A/P:
#Acute slightly comminuted and displaced fracture of the right iliac bone
#Comminuted fracture of the proximal right humerus s/p fall without LOC
PT/OT
Ortho consult - conservative mgmt, follow up in our office in the next few weeks for repeat x-rays to check the position of her humeral fracture
RUE in sling
WB allowed on LE
#Leukocytosis 2/2 UTI
With recent bacteriuria
Hard to assess symptoms with dementia, but fevers present
Reasonable to treat with Rocephin pending Ucx
Bcx pending
CT abd/pelvis without hyodronephrosis or nephrolithiasis
#Severe
#Essential HTN
#HLD
#Hx of CVA
#Dementia, unspecified
cont home meds
#Mild anemia
follow CBC
Outpatient w/u recommended
#petechial rash on LE
non-blanchable
intermitent and chronic
watch
DVT ppx Lovenox
CPR ok, but no intubation as per POA
I have spent at least 59min reviewing chart, test results, communication with consultants and direct patient care
Anticipated Discharge: 24 - 48 hours
Subjective/Interval History
-
Date of Service: February 28, 2024
Objective Data
-
Labs:
Laboratory Results
02/28/24
07:15
WBC 10.0
Hgb 10.4 L
Hct 32.4 L
Plt Count 233
Sodium 137
Potassium 3.7
Chloride 96 L
Carbon Dioxide 34 H
BUN 46 H
Creatinine 0.6
Glucose 132 H
Calcium 8.6
Vital Signs:
Vital Signs
Temp Pulse Resp BP Pulse Ox
98.2 F 85 17 141/70 96
02/28/24 07:00 02/28/24 08:39 02/28/24 07:00 02/28/24 08:39 02/28/24 07:00
Review of Systems
-
History Source: Patient
All other systems: Reviewed and negative
Physical Exam
-
General: No Apparent Distress
Respiratory: Clear to Auscultation
Cardiac: Regular Rhythm
Skin: Warm
Neuro: Awake, Alert, Oriented and AO x 3
Psych: Calm
[2024-02-28 11:33] VITALS: BP 119/66; BP 125/63; PULSE 85; O2SAT 94
[2024-02-28 15:21] VITALS: BP 132/69
[2024-02-28] MEDS: STERILE WATER FOR INJECTION 10 ML IV (18:23)
[2024-02-28] MEDS: ROCEPHIN 1000 MG IV (18:24)
[2024-02-28] MEDS: SINGULAIR 10 MG PO (21:39)
[2024-02-28] MEDS: LEXAPRO 5 MG PO (21:39)
[2024-02-28] MEDS: LEXAPRO 10 MG PO (21:39)
[2024-02-28 23:35] VITALS: BP 132/79
[2024-02-29 07:15] LABS: Blood Urea Nitrogen 40 mg/dl (7-17); Calcium 8.4 mg/dl (8.4-10.2); Carbon Dioxide 37 mmol/L (22-30); Chloride 98 mmol/L (98-107); Estimated Creatinine Clearance 70 ml/min; Glucose 114 mg/dl (70-99); Potassium 3.8 mmol/L (3.5-5.1); Sodium 139 mmol/L (135-145); eGFR > 60.00
[2024-02-29 07:31] LABS: % Basophils 0.4 % (0-2); % Eosinophils 1.1 % (0-6); % Immature Granulocytes 0.4 % (0-0.5); % Lymphocytes 13.3 % (20.5-51.1); % Monocytes 12.4 % (1.7-9.3); % Neutrophils 72.4 % (42.2-75.2); Absolute Eosinophils 0.1 10^3/uL (0-0.7); Absolute Lymphocytes 1.2 10^3/uL (1.2-3.4); Absolute Monocytes 1.1 10^3/uL (0.1-0.6); Absolute Neutrophils 6.7 10^3/uL (1.4-6.5); Hematocrit 29.3 % (37.0-47.0); Hemoglobin 9.3 g/dL (12.0-16.0); Mean Corp Hgb Conc. 31.7 g/dL (33.0-37.0); Mean Corpuscular Hgb 31.2 pg (27.0-31.0); Mean Corpuscular Volume 98.3 fL (81.0-99.0); Mean Platelet Volume 10.3 fL (7.4-10.4); Nucleated Red Blood Cells % 0 %; Platelet Count 214 10^3/uL (130-400); Red Blood Cell Count 2.98 10^6/uL (4.20-5.40); Red Cell Dist. Width 13.1 % (11.5-14.5); White Blood Cell Count 9.2 10^3/uL (4.8-10.8)
[2024-02-29] MEDS: NORVASC 5 MG PO (07:42)
[2024-02-29] MEDS: VITAMIN D3 (cholecalciferol) 50 MCG PO (07:42)
[2024-02-29] MEDS: FEOSOL 325 MG PO (07:42)
[2024-02-29] MEDS: LIPITOR 20 MG PO (07:42)
[2024-02-29] MEDS: KCL 20 MEQ PO (07:42)
[2024-02-29] MEDS: LOW STRENGTH ASPIRIN 81 MG PO (07:42)
[2024-02-29] MEDS: TYLENOL 650 MG PO ×2 (07:48→20:45)
[2024-02-29 08:05] VITALS: BP 145/63
--- NOTE | 2024-02-29 09:49 | PN.CDI ---
Addendum entered and electronically signed by Hudson Brito MD 02/29/24 11:42:
only history
Original Note:
CDI
- -
CDI:
Physician Documentation Request
Admit Date: 02/27/24 19:03
Dear Doctor Daryl,
Clinical Indicators:
Patient admitted with acute slightly comminuted and displaced fracture of the right iliac bone & comminuted fracture of the proximal right humerus.
02/26 H & P, 'PMHX...HFpEF...'
Home medications include furosemide 40 mg po daily
Please provide further specificity regarding the most likely acuity of CHF you are evaluating, treating or monitoring.
Chronic HFpEF
History of HFpEF only
Other, please specify
Use of terms such as suspected, likely, concern for, or probable (associated with a specific diagnosis that is being evaluated, monitored, or treated as if it exists) are acceptable and can be coded in the inpatient setting, when documented at the
time of discharge.
Thank you,
Farideh Case RN BSN
CDI Specialist
available via tiger text
Please use your independent medical judgment in providing your response.
[2024-02-29] MEDS: PROTONIX 40 MG PO (10:54)
[2024-02-29] MEDS: BACTRIM DS 800 MG/160 MG 1 TABLET PO ×2 (10:56→20:47)
--- NOTE | 2024-02-29 11:30 | W.PN.HOSP.TC ---
Today's Communication/Plan
-
will monitor H&H, if stable - d/c in AM to rehab
Assessment / Plan
Assessment / Plan
1yo F with PMHX of , dementia, Hx of CVA, HFpEF, HTN came after the fall at home. SHe does not remember details of the fall and is poor historian. She was managed for severe and d/kayla from DH day prior. SHe fell onto her R extended arm and
remembers the fall itself. On admission found comminuted Fx of proximal R humerus and R iliac bone, that ortho will be managed concervatively. Also concern for UTI with fevers - Ucx neg, so reasonable empiric treatment for previous infection.
A/P:
#Acute slightly comminuted and displaced fracture of the right iliac bone
#Comminuted fracture of the proximal right humerus s/p fall without LOC
PT/OT
Ortho consult - conservative mgmt, follow up in our office in the next few weeks for repeat x-rays to check the position of her humeral fracture
RUE in sling
WB allowed on LE
#Leukocytosis 2/2 UTI
With recent bacteriuria
Hard to assess symptoms with dementia, but fevers present
Ucx neg, but previou with E.coli sensitive to Bactrim - reasonable to start for 5 days
[address]TD
CT abd/pelvis without hydronephrosis or nephrolithiasis
#Anemia with PMHX of BETO
no overt bleeding
follow HGb
PPI
#Severe
#Essential HTN
#HLD
#Hx of CVA
#Dementia, unspecified
cont home meds
#petechial rash on LE
non-blanchable
intermitent and chronic
watch
DVT ppx Lovenox
CPR ok, but no intubation as per POA
I have spent at least 39min reviewing chart, test results, communication with consultants and direct patient care
Anticipated Discharge: Within 24 hours
Subjective/Interval History
-
Date of Service: February 29, 2024
Objective Data
-
Labs:
Laboratory Results
02/29/24 02/29/24
06:39 14:00
WBC 9.2
Hgb 9.3 L Pending
Hct 29.3 L Pending
Plt Count 214
Sodium 139
Potassium 3.8
Chloride 98
Carbon Dioxide 37 H
BUN 40 H
Creatinine 0.6
Glucose 114 H
Calcium 8.4
Vital Signs:
Vital Signs
Temp Pulse Resp BP Pulse Ox
98.3 F 78 17 145/63 92
02/29/24 08:05 02/29/24 08:05 02/29/24 08:05 02/29/24 08:05 02/29/24 08:05
I&O
02/28/24 02/29/24 03/01/24
06:59 06:59 06:59
Intake Total 1040 / 1040
Balance 1040 / 1040
Review of Systems
-
History Source: Patient
All other systems: Reviewed and negative
Physical Exam
-
General: No Apparent Distress
HEENT: Normocephalic
Respiratory: Clear to Auscultation
GI: Soft, Nontender and Nondistended
Skin: Warm
Neuro: Awake, Alert and Oriented
Psych: Calm and Apparent Dementia
--- NOTE | 2024-02-29 13:14 | CM ---
Patient seen at bedside.
Dx: UTI
Fall at home-fx R humerus
PMH: dementia, Hx of CVA, CHF, HTN
IA Completed-obtained by daughter Cyndi
Lives in a 2 story home alone, 1 step to enter, 6 steps to bed/bath
States she has aides 4hrs/day 7 days/wk
PLOF: ambulates with cane
PT recommend SNF-options given
daughter states [facility] in past - positive experience
Referrals entered in [facility]port
PCP: Ruchi Bradley
[facility]: [facility], pending bed availability
[2024-02-29 14:23] LABS: Hemoglobin 9.3 g/dL (12.0-16.0)
[2024-02-29 14:51] VITALS: BP 121/64; BP 160/73; BP 179/76
[2024-02-29 15:10] VITALS: BP 144/65
[2024-02-29] MEDS: LEXAPRO 10 MG PO (20:46)
[2024-02-29] MEDS: SINGULAIR 10 MG PO (20:47)
[2024-02-29] MEDS: LEXAPRO 5 MG PO (20:47)
[2024-02-29 23:51] VITALS: BP 144/65
[2024-03-01] MEDS: TYLENOL 650 MG PO ×2 (05:34→20:51)
[2024-03-01 07:14] LABS: Hematocrit 26.9 % (37.0-47.0); Hemoglobin 8.6 g/dL (12.0-16.0); Mean Corpuscular Volume 97.1 fL (81.0-99.0); Mean Platelet Volume 10.3 fL (7.4-10.4); Platelet Count 228 10^3/uL (130-400); Red Blood Cell Count 2.77 10^6/uL (4.20-5.40); Red Cell Dist. Width 12.9 % (11.5-14.5); White Blood Cell Count 9.7 10^3/uL (4.8-10.8)
[2024-03-01 07:25] VITALS: BP 125/56
[2024-03-01 07:34] LABS: Blood Urea Nitrogen 33 mg/dl (7-17); Calcium 8.3 mg/dl (8.4-10.2); Carbon Dioxide 35 mmol/L (22-30); Chloride 99 mmol/L (98-107); Estimated Creatinine Clearance 60 ml/min; Glucose 112 mg/dl (70-99); Sodium 138 mmol/L (135-145); eGFR > 60.00
[2024-03-01] MEDS: KCL 20 MEQ PO (08:08)
[2024-03-01] MEDS: LIPITOR 20 MG PO (08:08)
[2024-03-01] MEDS: PROTONIX 40 MG PO (08:08)
[2024-03-01] MEDS: FEOSOL 325 MG PO (08:08)
[2024-03-01] MEDS: BACTRIM DS 800 MG/160 MG 1 TABLET PO ×2 (08:08→20:42)
[2024-03-01] MEDS: VITAMIN D3 (cholecalciferol) 50 MCG PO (08:08)
[2024-03-01] MEDS: NORVASC 5 MG PO (08:09)
[2024-03-01] MEDS: LOW STRENGTH ASPIRIN 81 MG PO (08:09)
[2024-03-01] MEDS: LASIX 40 MG PO (08:10)
[2024-03-01 10:34] LABS: LDH 225 U/L (120-246)
[2024-03-01 10:36] LABS: Reticulocyte Count 2.7 % (0.4-2.8)
[2024-03-01 10:47] LABS: Iron < 20 ug/dl (37-170)
[2024-03-01 10:51] LABS: Percent Saturation 8.40335 % (20-50)
--- NOTE | 2024-03-01 11:23 | W.PN.HOSP.TC ---
Today's Communication/Plan
-
FOBT -RN aware
IV iron
follow H&H
Not ready for d/c
Assessment / Plan
Assessment / Plan
1yo F with PMHX of , dementia, Hx of CVA, HFpEF, HTN came after the fall at home. SHe does not remember details of the fall and is poor historian. She was managed for severe and d/kayla from DH day prior. SHe fell onto her R extended arm and
remembers the fall itself. On admission found comminuted Fx of proximal R humerus and R iliac bone, that ortho will be managed concervatively. Also concern for UTI with fevers - Ucx neg, so reasonable empiric treatment for previous infection.
Developed worsening BETO
A/P:
#Acute slightly comminuted and displaced fracture of the right iliac bone
#Comminuted fracture of the proximal right humerus s/p fall without LOC
PT/OT
Ortho consult - conservative mgmt, follow up in our office in the next few weeks for repeat x-rays to check the position of her humeral fracture
RUE in sling
WB allowed on LE
#Leukocytosis 2/2 UTI
With recent bacteriuria
Hard to assess symptoms with dementia, but fevers present
Ucx neg, but previous with E.coli sensitive to Bactrim - reasonable to start for 5 days
Bcx NTD
CT abd/pelvis without hydronephrosis or nephrolithiasis
#Anemia with BETO
no overt bleeding, can be 2/2 recent Fx, posttraumatic
follow HGb
PPI
IV iron
check FOBT
#Severe
#Essential HTN
#HLD
#Hx of CVA
#Dementia, unspecified
cont home meds
#petechial rash on LE - resolved
DVT ppx SCDs
CPR ok, but no intubation as per POA
I have spent at least 39min reviewing chart, test results, communication with consultants and direct patient care
Anticipated Discharge: 24 - 48 hours
Subjective/Interval History
-
Date of Service: March 01, 2024
Objective Data
-
Labs:
Laboratory Results
03/01/24
06:31
WBC 9.7
Hgb 8.6 L
Hct 26.9 L
Plt Count 228
Sodium 138
Potassium 4.0
Chloride 99
Carbon Dioxide 35 H
BUN 33 H
Creatinine 0.7
Glucose 112 H
Calcium 8.3 L
Vital Signs:
Vital Signs
Temp Pulse Resp BP Pulse Ox
98.0 F 76 16 125/56 93
03/01/24 07:25 03/01/24 08:10 03/01/24 07:25 03/01/24 08:10 03/01/24 07:25
I&O
02/29/24 03/01/24 03/02/24
06:59 06:59 06:59
Intake Total 1040 / 1040 1100 / 1100
Balance 1040 / 1040 1100 / 1100
Review of Systems
-
Unable to obtain full review of systems at this time due to: Dementia
History Source: Patient
Physical Exam
-
General: No Apparent Distress
HEENT: Normocephalic
Respiratory: Clear to Auscultation
Cardiac: Regular Rhythm
GI: Soft, Nontender and Nondistended
Musculoskeletal: No Clubbing, No Cyanosis and No Edema
Skin: Warm and Other (mild bruising onRUE)
Neuro: Awake, Alert, Oriented and AO x 3
Psych: Calm and Apparent Dementia
[2024-03-01] MEDS: FERRLECIT 110 MG IV (14:04)
[2024-03-01 15:45] VITALS: BP 117/53
[2024-03-01 16:49] VITALS: BP 122/55; BP 172/73; PULSE 73; O2SAT 95
[2024-03-01 17:05] LABS: Vitamin B12 > 1000 pg/ml (239-931)
[2024-03-01] MEDS: SINGULAIR 10 MG PO (20:44)
[2024-03-01] MEDS: LEXAPRO 10 MG PO (20:44)
[2024-03-01] MEDS: LEXAPRO 5 MG PO (20:45)
[2024-03-01 23:00] VITALS: BP 123/51
[2024-03-02 06:00] VITALS: BMI 20.4
[2024-03-02 06:43] LABS: Hematocrit 26.3 % (37.0-47.0); Hemoglobin 8.5 g/dL (12.0-16.0); Mean Corp Hgb Conc. 32.3 g/dL (33.0-37.0); Mean Corpuscular Hgb 31.6 pg (27.0-31.0); Mean Corpuscular Volume 97.8 fL (81.0-99.0); Mean Platelet Volume 10.1 fL (7.4-10.4); Platelet Count 243 10^3/uL (130-400); Red Blood Cell Count 2.69 10^6/uL (4.20-5.40); Red Cell Dist. Width 12.9 % (11.5-14.5); White Blood Cell Count 8.5 10^3/uL (4.8-10.8)
[2024-03-02 07:06] LABS: Blood Urea Nitrogen 33 mg/dl (7-17); Calcium 8.4 mg/dl (8.4-10.2); Carbon Dioxide 33 mmol/L (22-30); Chloride 98 mmol/L (98-107); Estimated Creatinine Clearance 51 ml/min; Glucose 88 mg/dl (70-99); Potassium 4.2 mmol/L (3.5-5.1); Sodium 137 mmol/L (135-145); eGFR > 60.00
[2024-03-02 08:00] VITALS: BP 130/59
[2024-03-02] MEDS: FEOSOL 325 MG PO (08:38)
[2024-03-02] MEDS: BACTRIM DS 800 MG/160 MG 1 TABLET PO ×2 (08:38→20:47)
[2024-03-02] MEDS: LASIX 40 MG PO (08:38)
[2024-03-02] MEDS: NORVASC 5 MG PO (08:38)
[2024-03-02] MEDS: VITAMIN D3 (cholecalciferol) 50 MCG PO (08:38)
[2024-03-02] MEDS: LOW STRENGTH ASPIRIN 81 MG PO (08:38)
[2024-03-02] MEDS: PROTONIX 40 MG PO (08:38)
[2024-03-02] MEDS: LIPITOR 20 MG PO (08:38)
[2024-03-02] MEDS: KCL 20 MEQ PO (08:39)
--- NOTE | 2024-03-02 11:45 | W.PN.HOSP.TC ---
Today's Communication/Plan
-
pending FOBT
CBC in AM
Assessment / Plan
Assessment / Plan
1yo F with PMHX of , dementia, Hx of CVA, HFpEF, HTN came after the fall at home. SHe does not remember details of the fall and is poor historian. She was managed for severe and d/kayla from DH day prior. SHe fell onto her R extended arm and
remembers the fall itself. On admission found comminuted Fx of proximal R humerus and R iliac bone, that ortho will be managed concervatively. Also concern for UTI with fevers - Ucx neg, so reasonable empiric treatment for previous infection.
Developed worsening BETO
A/P:
#Acute slightly comminuted and displaced fracture of the right iliac bone
#Comminuted fracture of the proximal right humerus s/p fall without LOC
PT/OT
Ortho consult - conservative mgmt, follow up in our office in the next few weeks for repeat x-rays to check the position of her humeral fracture
RUE in sling
WB allowed on LE
#Leukocytosis 2/2 UTI
With recent bacteriuria
Hard to assess symptoms with dementia, but fevers present
Ucx neg, but previous with E.coli sensitive to Bactrim - reasonable to start for 5 days
[address] NTD
CT abd/pelvis without hydronephrosis or nephrolithiasis
#Anemia with BETO
no overt bleeding, can be 2/2 recent Fx, posttraumatic
follow HGb
PPI
IV iron
check FOBT
#Severe
#Essential HTN
#HLD
#Hx of CVA
#Dementia, unspecified
cont home meds
#petechial rash on LE - resolved
DVT ppx SCDs
CPR ok, but no intubation as per POA
I have spent at least 39min reviewing chart, test results, communication with consultants and direct patient care
Anticipated Discharge: Within 24 hours
Subjective/Interval History
-
Date of Service: March 02, 2024
Objective Data
-
Labs:
Laboratory Results
03/02/24
06:16
WBC 8.5
Hgb 8.5 L
Hct 26.3 L
Plt Count 243
Sodium 137
Potassium 4.2
Chloride 98
Carbon Dioxide 33 H
BUN 33 H
Creatinine 0.8
Glucose 88
Calcium 8.4
Vital Signs:
Vital Signs
Temp Pulse Resp BP Pulse Ox
98.0 F 69 16 130/59 95
03/02/24 08:00 03/02/24 08:00 03/02/24 08:00 03/02/24 08:00 03/02/24 08:00
I&O
03/01/24 03/02/24 03/03/24
06:59 06:59 06:59
Intake Total 1100 / 1100 1010 / 1010
Balance 1100 / 1100 1010 / 1010
Review of Systems
-
History Source: Patient
All other systems: Reviewed and negative
Constitutional: Reports Fatigue
Physical Exam
-
General: No Apparent Distress
HEENT: Normocephalic
Cardiac: Regular Rhythm
GI: Soft, Nontender and Nondistended
Neuro: Awake, Alert, Oriented and AO x 3
Psych: Calm
--- NOTE | 2024-03-02 12:33 | CM ---
Referrals sent via [facility] to [facility] are both pending bed availability day of dc.
CM following. Not stable today for d/c per team.
[2024-03-02] MEDS: DULCOLAX 10 MG RECTAL (12:47)
[2024-03-02 12:59] VITALS: BP 115/53; PULSE 73; O2SAT 93
[2024-03-02] MEDS: TYLENOL 650 MG PO (13:10)
[2024-03-02] MEDS: FERRLECIT 110 MG IV (13:11)
[2024-03-02 16:00] VITALS: BP 116/50
[2024-03-02] MEDS: LEXAPRO 10 MG PO (20:48)
[2024-03-02] MEDS: LEXAPRO 5 MG PO (20:49)
[2024-03-02] MEDS: SINGULAIR 10 MG PO (20:49)
[2024-03-02 23:00] VITALS: BP 119/54
[2024-03-03 06:00] VITALS: BMI 20.3
[2024-03-03 07:00] VITALS: BP 126/63
[2024-03-03 07:00] LABS: % Basophils 0.6 % (0-2); % Eosinophils 2.7 % (0-6); % Immature Granulocytes 0.7 % (0-0.5); % Lymphocytes 14.4 % (20.5-51.1); % Monocytes 10.6 % (1.7-9.3); Absolute Basophils 0.1 10^3/uL (0-0.2); Absolute Eosinophils 0.2 10^3/uL (0-0.7); Absolute Immature Granulocytes 0.1 10^3/uL (0-0.05); Absolute Lymphocytes 1.3 10^3/uL (1.2-3.4); Absolute Monocytes 0.9 10^3/uL (0.1-0.6); Absolute Neutrophils 6.2 10^3/uL (1.4-6.5); Hematocrit 26.4 % (37.0-47.0); Hemoglobin 8.5 g/dL (12.0-16.0); Mean Corp Hgb Conc. 32.2 g/dL (33.0-37.0); Mean Corpuscular Hgb 31.5 pg (27.0-31.0); Mean Corpuscular Volume 97.8 fL (81.0-99.0); Mean Platelet Volume 10.5 fL (7.4-10.4); Nucleated Red Blood Cells % 0 %; Platelet Count 270 10^3/uL (130-400); Red Cell Dist. Width 13.1 % (11.5-14.5); White Blood Cell Count 8.7 10^3/uL (4.8-10.8)
[2024-03-03 09:22] VITALS: BP 144/62; PULSE 74; O2SAT 95
[2024-03-03 09:30] VITALS: BP 144/62; PULSE 74; O2SAT 95
[2024-03-03] MEDS: PROTONIX 40 MG PO (10:35)
[2024-03-03] MEDS: LIPITOR 20 MG PO (10:35)
[2024-03-03] MEDS: BACTRIM DS 800 MG/160 MG 1 TABLET PO (10:35)
[2024-03-03] MEDS: VITAMIN D3 (cholecalciferol) 50 MCG PO (10:35)
[2024-03-03] MEDS: FEOSOL 325 MG PO (10:35)
[2024-03-03] MEDS: NORVASC 5 MG PO (10:36)
[2024-03-03] MEDS: LOW STRENGTH ASPIRIN 81 MG PO (10:36)
[2024-03-03] MEDS: KCL 20 MEQ PO (10:36)
[2024-03-03] MEDS: LASIX 40 MG PO (10:36)
--- NOTE | 2024-03-03 11:06 | W.PN.HOSP.TC ---
Today's Communication/Plan
-
dc
Assessment / Plan
Assessment / Plan
1yo F with PMHX of , dementia, Hx of CVA, HFpEF, HTN came after the fall at home. SHe does not remember details of the fall and is poor historian. She was managed for severe and d/kayla from DH day prior. SHe fell onto her R extended arm and
remembers the fall itself. Patient had chronic progressive ambulatory deficiency. On admission found comminuted Fx of proximal R humerus and R iliac bone, that ortho will be managed conservatively. Also concern for UTI with fevers - Ucx neg, so
reasonable empiric treatment for previous infection - completed 3 days of Bactrim for simple cystitis. Developed worsening BETO, but FOBT neg. Hgb remained stable over >48h before d/c. Medically stable for d/c to rehab
A/P:
#Acute slightly comminuted and displaced fracture of the right iliac bone
#Comminuted fracture of the proximal right humerus s/p fall without LOC
PT/OT
Ortho consult - conservative mgmt, follow up in our office in the next few weeks for repeat x-rays to check the position of her humeral fracture
RUE in sling
WB allowed on LE
#Leukocytosis 2/2 UTI
With recent bacteriuria
Hard to assess symptoms with dementia, but fevers present
Ucx neg, but previous with E.coli sensitive to Bactrim - reasonable to start for 5 days
Bcx NTD
CT abd/pelvis without hydronephrosis or nephrolithiasis
#Anemia with BETO
no overt bleeding, can be 2/2 recent Fx, posttraumatic
HGb stable
PPI
IV iron
FOBT neg
#Severe
#Essential HTN
#HLD
#Hx of CVA
#Dementia, unspecified
cont home meds
#petechial rash on LE - resolved
#Chronic progressive ambulatory deficiency
PT/OT
TSH WNL
DVT ppx SCDs
CPR ok, but no intubation as per POA
I have spent at least 39min reviewing chart, test results, communication with consultants and direct patient care
Anticipated Discharge: Today
Subjective/Interval History
-
Date of Service: March 03, 2024
Objective Data
-
Labs:
Laboratory Results
03/03/24
05:52
WBC 8.7
Hgb 8.5 L
Hct 26.4 L
Plt Count 270
Vital Signs:
Vital Signs
Temp Pulse Resp BP Pulse Ox
98.6 F 71 14 126/63 93
03/03/24 07:00 03/03/24 07:00 03/03/24 07:00 03/03/24 07:00 03/03/24 07:00
I&O
03/02/24 03/03/24 03/04/24
06:59 06:59 06:59
Intake Total 1010 / 1010 1200 / 1200
Balance 1010 / 1010 1200 / 1200
Review of Systems
-
History Source: Patient
All other systems: Reviewed and negative
Physical Exam
-
General: No Apparent Distress
HEENT: Moist Mucous Membranes
Respiratory: Clear to Auscultation
Cardiac: Regular Rhythm
Skin: Warm
Neuro: Awake, Alert and Oriented
Psych: Calm and Apparent Dementia
--- NOTE | 2024-03-03 11:11 | W.DCSUMMARY ---
Addendum entered and electronically signed by Chente Ivey MD 03/04/24 14:43:
Attendant. SNF was found on 03/04/2024. Date of discharge 03/04/24. Otherwise rest of the summary as below.
Original Note:
Discharge Summary
Discharge Data
Date of Admission: 02/27/24
Date of Discharge: 03/03/24
-
Pending Results: No
Hospital Course
78yo F with PMHX of , dementia, Hx of CVA, HFpEF, HTN came after the fall at home. SHe does not remember details of the fall and is poor historian. She was managed for severe and d/kayla from DH day prior. SHe fell onto her R extended arm and
remembers the fall itself. Patient had chronic progressive ambulatory deficiency. On admission found comminuted Fx of proximal R humerus and R iliac bone, that ortho will be managed conservatively. Also concern for UTI with fevers - Ucx neg, so
reasonable empiric treatment for previous infection - completed 3 days of Bactrim for simple cystitis. Developed worsening BETO, but FOBT neg. Hgb remained stable over >48h before d/c. Medically stable for d/c to rehab
I have spent at least 39min reviewing chart, test results, communication with consultants and direct patient care
Patient was managed for:
#Acute slightly comminuted and displaced fracture of the right iliac bone
#Comminuted fracture of the proximal right humerus s/p fall without LOC
#Leukocytosis 2/2 UTI
#Anemia with BETO
#Severe
#Essential HTN
#HLD
#Hx of CVA
#Dementia, unspecified
#petechial rash on LE - resolved
#Chronic progressive ambulatory deficiency
Discharge Plan
-
Patient Disposition: Snf/SNF
Discharge Diagnosis/Procedures: Fracture
Diet: Low Cholesterol
Activity: As tolerated
Referrals:
Ruchi Bradley DO [Family Provider] -
Peter Banks MD [Active] - in one to two weeks (follow up in our office in the next few weeks for repeat x-rays to check the position of her humeral fracture)
Prescriptions:
New
pantoprazole 40 mg Tablet,Delayed Release (Dr/Ec)
40 mg PO DAILY Qty: 30 0RF
polyethylene glycol 3350 17 gram Powder In Packet
17 g PO DAILYPRN PRN (Reason: constipation) Qty: 30 0RF
Continued
atorvastatin 20 mg tablet
20 mg PO DAILY
amlodipine 5 mg tablet
5 mg PO DAILY
montelukast 10 mg tablet
10 mg PO HS
albuterol sulfate 90 mcg/actuation HFA aerosol inhaler
2 puff INHALATION R Q4HPRN PRN (Reason: sob/wheezing)
escitalopram oxalate 10 mg tablet
10 mg PO HS
cholecalciferol (vitamin D3) 50 mcg (2,000 unit) capsule
50 mcg PO DAILY
aspirin [Children's Aspirin] 81 mg Tablet,Chewable
81 mg PO DAILY Qty: 0 0RF
sennosides-docusate sodium [Stool Softener-Stimulant Laxat] 8.6-50 mg Tablet
1 tab PO BIDPRN PRN (Reason: constipation) Qty: 0 0RF
cyanocobalamin (vitamin B-12) 1,000 mcg Tablet
1,000 mcg PO DAILY Qty: 0 0RF
ferrous gluconate 324 mg (37.5 mg iron) tablet
324 mg PO DAILY Qty: 1 0RF
escitalopram oxalate 5 mg tablet
5 mg PO HS
acetaminophen [Tylenol Extra Strength] 500 mg tablet
1,000 mg PO TIDPRN PRN (Reason: mild pain)
furosemide 40 mg Tablet
40 mg PO DAILY Qty: 30 0RF
potassium chloride 20 mEq tablet,ER particles/crystals
20 meq PO DAILY Qty: 30 0RF
Discharge Orders:
Discharge Patient (As Directed); Ordered 03/03/24
Ordered By: Hudson Brito
Discharge Date and Time
Print Language: LIBYAN
--- NOTE | 2024-03-03 11:25 | CM ---
CM notified by [employer] Magda that dc order is in place. Chart reviewed, dc order noted. Updated clinical sent via [facility] to Titus Miller ([email or web address]) and [facility]. Also left requesting to discuss pts dc further-pending return call at this time. Will
discuss bed offers with dtr when they become available.
CM/SW will continue to follow to ensure a safe and timely dc.
[2024-03-03] MEDS: FERRLECIT IV ×2 (14:59→15:14)
[2024-03-03 15:00] VITALS: BP 144/61
[2024-03-03] MEDS: SINGULAIR 10 MG PO (21:29)
[2024-03-03] MEDS: LEXAPRO 5 MG PO (21:29)
[2024-03-03] MEDS: LEXAPRO 10 MG PO (21:30)
[2024-03-03 23:00] VITALS: BP 128/58
[2024-03-04 06:00] VITALS: BMI 20.2
[2024-03-04 07:15] VITALS: BP 130/62
[2024-03-04 09:56] VITALS: BP 137/61; BP 143/63; PULSE 70; O2SAT 93
[2024-03-04] MEDS: PROTONIX 40 MG PO (10:08)
[2024-03-04] MEDS: LOW STRENGTH ASPIRIN 81 MG PO (10:09)
[2024-03-04] MEDS: VITAMIN D3 (cholecalciferol) 50 MCG PO (10:09)
[2024-03-04] MEDS: NORVASC 5 MG PO (10:09)
[2024-03-04] MEDS: LASIX 40 MG PO (10:09)
[2024-03-04] MEDS: FEOSOL 325 MG PO (10:09)
[2024-03-04] MEDS: LIPITOR 20 MG PO (10:09)
[2024-03-04] MEDS: KCL 20 MEQ PO (10:10)
--- NOTE | 2024-03-04 12:17 | CM ---
Addendum entered by SHAHEED Wells 03/04/24 13:29:
Received call from human resources coordinator from [facility] who stated that she can provided a bed for patient today.
Patient's daughter updated and agreeable to transfer there.
Medical necessity and transfer sheet completed for transfer. Will update RN.
# For report [phone] fax# [phone]
Address [address] [place] [address] [place] [id number].
Original Note:
Received a call from patient's daughter who stated that she would like for patient to go to a facility close to her near [place]. Sent referrals to [facility], [facility], and [facility]. Will await determination.
Plan: Case management will continue to follow and assist with discharge planning. SNF when bed found.
--- NOTE | 2024-03-04 12:17 | W.PN.HOSP.TC ---
Today's Communication/Plan
-
dc to snf
await placement
Assessment / Plan
Assessment / Plan
1yo F with PMHX of , dementia, Hx of CVA, HFpEF, HTN came after the fall at home. SHe does not remember details of the fall and is poor historian. She was managed for severe and d/kayla from DH day prior. SHe fell onto her R extended arm and
remembers the fall itself. Patient had chronic progressive ambulatory deficiency. On admission found comminuted Fx of proximal R humerus and R iliac bone, that ortho will be managed conservatively. Also concern for UTI with fevers - Ucx neg, so
reasonable empiric treatment for previous infection - completed 3 days of Bactrim for simple cystitis. Developed worsening BETO, but FOBT neg. Hgb remained stable over >48h before d/c. Medically stable for d/c to rehab
A/P:
#Acute slightly comminuted and displaced fracture of the right iliac bone
#Comminuted fracture of the proximal right humerus s/p fall without LOC
PT/OT
Ortho consult - conservative mgmt, follow up in our office in the next few weeks for repeat x-rays to check the position of her humeral fracture
RUE in sling
WB allowed on LE
#Leukocytosis 2/2 UTI
With recent bacteriuria
Hard to assess symptoms with dementia, but fevers present
Ucx neg, but previous with E.coli sensitive to Bactrim - reasonable to start for 5 days
Bcx NTD
CT abd/pelvis without hydronephrosis or nephrolithiasis
#Anemia with BETO
no overt bleeding, can be 2/2 recent Fx, posttraumatic
HGb stable
PPI
IV iron completed course 5d
FOBT neg
#Severe
#Essential HTN
#HLD
#Hx of CVA
#Dementia, unspecified
cont home meds
#petechial rash on LE - resolved
#Chronic progressive ambulatory deficiency
PT/OT
TSH WNL
DVT ppx SCDs
CPR ok, but no intubation as per POA
PT/OT-SNF. CM aware. Medically stable for placement.
Anticipated Discharge: Today
Subjective/Interval History
-
Date of Service: March 04, 2024
sitting in chair eating breakfast
No overnight events
Remains in right upper extremity sling
Objective Data
-
Vital Signs:
Vital Signs
Temp Pulse Resp BP Pulse Ox
97.8 F 69 18 130/62 95
03/04/24 07:15 03/04/24 07:15 03/04/24 07:15 03/04/24 07:15 03/04/24 07:15
I&O
03/03/24 03/04/24 03/05/24
06:59 06:59 06:59
Intake Total 1200 / 1200 240 / 240
Balance 1200 / 1200 240 / 240
Physical Exam
-
General: No Apparent Distress
HEENT: Moist Mucous Membranes
Respiratory: Clear to Auscultation
Cardiac: Regular Rhythm
GI: Soft, Nontender and Nondistended
Musculoskeletal: Other (RUE in sling )
Skin: Warm
Neuro: Awake, Alert and Oriented
Psych: Calm
[2024-03-04 13:53] VITALS: BP 138/66
--- NOTE | 2024-03-04 14:49 | PTCARENOTE ---
Attempted to call report - receiving facility hung up phone - will try again in a couple minutes.
== END 2024-03-04 14:42 | DRG 563 ==
LOC: 3 WEST ACU 19:03
PROVIDERS: Physician Assistant; Registered Nurse; ADMITTING PHYSICIAN Internal Medicine; ATTENDING PHYSICIAN Hospitalist; CONSULT PHYSICIAN Orthopaedic Surgery; EMERGENCY PHYSICIAN Student in an Organized Health Care Education/Training Program; FAMILY PHYSICIAN Family Medicine
DX: S42.201A Unspecified fracture of upper end of right humerus, initial encounter for closed fracture (principal); S32.301A Unspecified fracture of right ilium, initial encounter for closed fracture; N39.0 Urinary tract infection, site not specified; F03.94 Unspecified dementia, unspecified severity, with anxiety; F03.93 Unspecified dementia, unspecified severity, with mood disturbance; W19.XXXA Unspecified fall, initial encounter; D64.9 Anemia, unspecified; R23.3 Spontaneous ecchymoses; Z86.73 Personal history of transient ischemic attack (TIA), and cerebral infarction without residual deficits; Z75.1 Person awaiting admission to adequate facility elsewhere; I10 Essential (primary) hypertension; Z11.52 Encounter for screening for COVID-19
CPT/HCPCS: 70450; 72125; 73030; 73502; 74176; 80048; 80053; 81003; 81015; 82550; 82607; 82728; 82746; 83540; 83550; 83615; 85014; 85018; 85025; 85027; 85045; 87040; 87086; 87502; 87811; 93005; 96374; 97110; 97116; 97163; 97167; 97530; 97535; 99285; J2916

== ENCOUNTER → 2024-11-08 07:40 | Outpatient (REF) | payer MEDICARE, OTHER, SELFPAY ==
[2024-11-08 18:10] LABS: Urine Character Cloudy (Clear)
[2024-11-08 18:24] LABS: Urine Squamous Cell 0-2 /LPF (Few); Urine White Cell 16-20 /HPF (0-5)
== END ==
LOC: OLABP 07:40
PROVIDERS: ATTENDING PHYSICIAN Nurse Practitioner Gerontology
DX: N39.0 Urinary tract infection, site not specified (principal)
CPT/HCPCS: 81003; 81015; 87077; 87086; 87186

== ENCOUNTER → 2024-12-26 11:02 | Outpatient (REF) | payer MEDICARE, OTHER, SELFPAY ==
[2024-12-26 11:50] LABS: Hematocrit 36.7 % (37.0-47.0); Hemoglobin 11.8 g/dL (12.0-16.0); Mean Corp Hgb Conc. 32.2 g/dL (33.0-37.0); Mean Corpuscular Volume 95.1 fL (81.0-99.0); Nucleated Red Blood Cells % 0 %; Platelet Count 274 10^3/uL (130-400); Red Cell Dist. Width 13.1 % (11.5-14.5)
[2024-12-26 12:32] LABS: Vitamin D, 25-OH*** 55.5 ng/mL (30-80)
[2024-12-26 12:42] LABS: Glycohemoglobin (HgbA1c) 5.8 % (4.0-5.6)
[2024-12-26 12:45] LABS: TSH 3.09 uIU/ml (0.47-4.68)
[2024-12-26 13:21] LABS: Folate 9.7 ng/ml (2.76-20); Vitamin B12 938 pg/ml (239-931)
== END ==
LOC: OLABP 11:02
PROVIDERS: ATTENDING PHYSICIAN Nurse Practitioner Gerontology
DX: Z79.899 Other long term (current) drug therapy (principal); I10 Essential (primary) hypertension
CPT/HCPCS: 36415; 82306; 82607; 82746; 83036; 84439; 84443; 85025

== ENCOUNTER → 2025-01-01 18:14 | Outpatient (REF) | payer MEDICARE, OTHER, SELFPAY | LOC: OLABP 18:14 | PROVIDERS: ATTENDING PHYSICIAN Nurse Practitioner Gerontology | DX: N39.0 Urinary tract infection, site not specified (principal) | CPT/HCPCS: 87086; 87088; 87186 ==

== ENCOUNTER → 2025-03-18 11:40 | Outpatient (REF) | payer MEDICARE, OTHER, SELFPAY ==
[2025-03-18 14:41] LABS: Urine Character Cloudy (Clear)
[2025-03-18 15:37] LABS: Urine Red Blood Cell 0-2 /HPF (0-2); Urine Urothelial Cell 0-2 /LPF (FEW)
[2025-03-18 15:38] LABS: Urine White Cell 30-40 /HPF (0-5)
== END ==
LOC: OLABP 11:40
PROVIDERS: ATTENDING PHYSICIAN Nurse Practitioner Gerontology
DX: N39.0 Urinary tract infection, site not specified (principal)
CPT/HCPCS: 81003; 81015; 87086